=== PATIENT | female | born 1955 | race Caucasian/White ===

== ENCOUNTER 2018-09-23 17:48 | Inpatient (IN) | payer MEDICARE, OTHER ==
--- NOTE | 2018-09-23 18:11 | ED Physician Chart ---
ED Chief Complaint/HPI - Patient Information Date Seen:: 09/23/18 Time Seen:: 18:06 Chief Complaint:: psychosls History of Present Illness:: this is a 63 yo chronically ill fpc who was sent here for evaluation and treatment because she became agitated at the fpc. she has a psych history she is demented. Allergies:: Allergies Allergy/AdvReac Type Severity Reaction Status Date / Time Penicillins [PCN] AdvReac Verified 09/23/18 17:50 Sulfa (Sulfonamide AdvReac Verified 09/23/18 17:50 Antibiotics) Vitals:: Vital Signs - 8 hr 09/23/18 18:00 Temp 97.8 F HR 74 RR 16 BP 132/75 O2 Sat % 97 Historian:: Medical Records Review:: Nurse's Note Reviewed, Old Chart Reviewed ED Review of Systems - Review of Systems General/Constitutional: No fever, No chills, No weight loss, No weakness, No diaphoresis, No edema, No loss of appetite, Other (this patient is unable to give a review of systems.) Skin: No skin lesions, No rash, No bruising Head: No headache, No light-headedness Eyes: No loss of vision, No pain, No diplopia ENT: No earache, No nasal drainage, No sore throat, No tinnitus Neck: No neck pain, No swelling, No thyromegaly, No stiffness, No mass noted Cardio Vascular: No chest pain, No palpitations, No PND, No orthopnea, No edema Pulmonary: No SOB, No cough, No sputum, No wheezing GI: No nausea, No vomiting, No diarrhea, No pain, No melena, No hematochezia, No constipation, No hematemesis G/U: No dysuria, No frequency, No hematuria Musculoskeletal: No bone or joint pain, No back pain, No muscle pain Endocrine: No polyuria, No polydipsia Psychiatric: No prior psych history, No depression, No anxiety, No suicidal ideation Hematopoietic: No bruising, No lymphadenopathy Allergic/Immuno: No urticaria, No angioedema Neurological: No syncope, No focal symptoms, No weakness, No paresthesia, No headache, No seizure, No dizziness, No confusion, No vertigo ED Past Medical History - Past Medical History Obtainable: Yes Past Medical History: HTN, Asthma/COPD, Dyslipidemia, Thyroid disorder, Arthritis, Dementia Family History: None Social History: Non Smoker, No Alcohol, Care Facility ( ) Surgical History: other (unknown) Psychiatricy History: Schizophrenia, Bipolar, Dementia Medication: Reviewed Family Medical History - Family Member Father History Unknown: Yes Ethnicity: Unknown Living Status: Unknown ED Physical Exam - Physical Examination General/Constitutional: Awake, Well-developed, well-nourished, Alert, No distress, GCS 15, Non-toxic appearing, Ambulatory Head: Atraumatic Eyes: Lids, conjuctiva normal, PERRL, EOMI Skin: Nl inspection, No rash, No skin lesions, No ecchymosis, Well hydrated, No lymphadenopathy ENMT: External ears, nose nl, Nasal exam nl, Lips, teeth, gums nl Neck: Nontender, Full ROM w/o pain, No JVD, No nuchal rigidity, No bruit, No mass, No stridor Respiratory: Nl effort/Exclusion, Clear to Auscultation, No Wheeze/Rhonchi/Rales Cardio Vascular: RRR, No murmur, gallop, rubs, NL S1 S2 GI: No tenderness/rebounding/guarding, No organomegaly, No hernia, Normal BS's, Nondistended, No mass/bruits, No McBurney tenderness : No CVA tenderness Extremities: No tenderness or effusion, Full ROM, normal strength in all extremities, No edema, Normal digits & nails Neuro/Psych: Alert/oriented (disoriented times four), DTR's symmetric, Normal sensory exam, Normal motor strength, Judgement/insight normal (demented), Mood normal, Normal gait, No focal deficits Misc: Normal back, No paraspinal tenderness ED Labs/Radiology/EKG Results - EKG Interpretations EKG Time:: 17:59 Rate & Rhythm: rate=91, sinus [place]: right axis ED Assessment - Assessment General Assessment: psychosis ED Septic Shock - . Is Septic Shock (SBP<90, OR Lactate>4 mmol\L) present?: No - <6hrs of presentation: Vital Signs: Vital Signs - 8 hr 09/23/18 18:00 Temp 97.8 F HR 74 RR 16 BP 132/75 O2 Sat % 97 ED Reassessment (Disposition) - Reassessment Reassessment Condition:: Unchanged - Diagnosis Diagnosis:: psychosis - Patient Disposition Discharge/Transfer:: Acute Care w/in this hosp Admitting Medical Physician:: Estephania Garcia Admitting Psych Physician:: Sandy Trujillo Condition at Disposition:: Unchanged
[2018-09-23 18:45] LABS: EOSINOPHILE ABSOLUTE 0.2 Th/cmm (0.1-0.4); HEMATOCRIT 42.1 % (41.0-60); HEMOGLOBIN 14.1 gm/dL (12-16); LYMPHOCYTE ABSOLUTE 9.1 Th/cmm (1.5-3.0); MEAN CELL VOLUME 88.2 fl (81-100); MEAN CORPUSCULAR HEMOGLOBIN 29.5 pg (27.0-31.0); MEAN CORPUSCULAR HGB CONC 33.5 pg (28.0-36.0); MONOCYTE ABSOLUTE 0.6 Th/cmm (0.3-1.0); NEUTROPHILE ABSOLUTE 4.6 Th/cmm (1.8-8.0); PLATELET COUNT 186 Th/cmm (150-400); RED BLOOD COUNT 4.77 Mil/cmm (3.80-5.20); RED CELL DISTRIBUTION WIDTH 14.2 % (11.5-20.0); WHITE BLOOD COUNT 14.5 Th/cmm (4.8-10.8)
[2018-09-23 18:53] LABS: ALB/GLOB RATIO 1.9 (1.0-1.8); ALBUMIN 4.5 gm/dL (3.7-5.3); ALKALINE PHOSPHATASE 60 U/L (34-104); ANION GAP 11.8 (7.0-16.0); BILIRUBIN,TOTAL 0.4 mg/dL (0.3-1.0); BUN - UREA NITROGEN 13 mg/dL (7-25); CALCIUM SERUM 9.9 mg/dL (8.6-10.3); CARBON DIOXIDE 26.3 mEq/L (21.0-31.0); CHLORIDE 105 mEq/L (98-107); CREATININE - SERUM 0.6 mg/dL (0.6-1.2); GFR AFRICAN-AMERICAN > 60.0 ml/min (>90); GFR NON AFRICAN-AMERICAN > 60.0 ml/min; GLUCOSE 91 mg/dL (70-105); POTASSIUM SERUM 4.1 mEq/L (3.5-5.1); SGOT 12 U/L (13-39); SGPT/ALT 10 U/L (7-52); SODIUM SERUM 139 mEq/L (136-145); TOTAL PROTEIN,SERUM 6.9 gm/dL (6.0-8.3)
[2018-09-23 18:54] LABS: CHOLESTEROL 129 mg/dL (<200); HDL -HIGH DENSITY LIPOPROTEIN 32 mg/dL (23-92); TRIGLYCERIDES 141 mg/dL (<150)
[2018-09-23 19:10] LABS: BAND NEUTROPHILE 0 % (0-10); BASOPHIL 0 % (0-3); EOSINOPHIL 3 % (0-5); LYMPHOCYTE 69 % (20-50); MONOCYTE 3 % (2-10); NEUTROPHILS 25 % (40-80); PLATELET ESTIMATE ADEQUATE (NORMAL)
[2018-09-23 19:22] LABS: URINE SOURCE CLEAN C
[2018-09-23 19:39] LABS: URINE BILIRUBIN NEGATIVE (NEGATIVE); URINE BLOOD NEGATIVE (NEGATIVE); URINE GLUCOSE (UA) NEGATIVE (NEGATIVE); URINE KETONE NEGATIVE (NEGATIVE); URINE LEUKOCYTE ESTERASE NEGATIVE (NEGATIVE); URINE NITRATE NEGATIVE (NEGATIVE); URINE PROTEIN NEGATIVE (NEGATIVE); URINE UROBILINOGEN 0.2 E.U./dL (0.2 - 1.0)
[2018-09-23 19:44] LABS: URINE CLARITY CLEAR (CLEAR); URINE COLOR YELLOW; URINE MICROSCOPIC INDICATED? YES
[2018-09-23 19:57] LABS: INR 0.97 (0.5-1.4)
[2018-09-23 20:04] LABS: URINE BACTERIA NONE SEEN /hpf (NONE SEEN); URINE EPITHELIAL CELLS RARE /lpf (FEW); URINE RBC NONE SEEN /hpf (0-5); URINE WBC NONE SEEN /hpf (0-5)
[2018-09-23 20:30] VITALS: BP 135/68
[2018-09-23] MEDS ORDERED: Magnesium Hydroxide (MOM) 30 mL UDC PO PRN (20:35)
[2018-09-23] MEDS ORDERED: Albuterol Nebulizer 2.5mg/3mL HHN PRN (20:35)
[2018-09-23] MEDS ORDERED: Acetaminophen 500 MG TAB PO PRN (20:46)
[2018-09-23] MEDS ORDERED: Maalox 30 mL Cup PO PRN (20:47)
[2018-09-23] MEDS: Atorvastatin Calcium 10 MG TAB PO SCH (21:00)
[2018-09-24] MEDS: Levothyroxine 0.05 Mg Tab PO SCH (06:51)
[2018-09-24] MEDS: Fish Oil 1,000 MG SGL PO SCH (08:54)
[2018-09-24] MEDS: Multivitamin Tab PO SCH (08:54)
[2018-09-24] MEDS: Lidocaine 5% Patch TD SCH (08:58)
--- NOTE | 2018-09-24 09:07 | Diagnostic Imaging Report ---
Portable chest x-ray HISTORY: Shortness of breath The heart size is normal. There is elevation of the right hemidiaphragm. No acute focal pulmonary processes. No hilar or mediastinal abnormalities. Severe arthritic changes about the shoulders (left greater than right). IMPRESSION: 1. Elevation of the right hemidiaphragm 2. No acute abnormalities
--- NOTE | 2018-09-24 15:30 | History and Physical ---
History of Present Illness - HPI Chief Complaint: 63 y/o female patient is chronically ill and was brought in to ER for evaluation due to agitation. HPI: 63 y/o female patient is chronically ill and was admitted to [facility] for evaluation due to agitation. Patient has history of Htn, Dslipidemia, Thyroid disorder, Arthritis, Asthma, Schizophrenia, Bipolar disorder and Dementia. Patient had an ER assessment and a complete workup was done. Patient was diagnosed with Psychosis. Patient will have a Psych consult and I will also follow patient. Patient will be treated, monitored and will continue current treatment plan as ordered. Vital Signs: Last Vital Signs Temp 97.5 F 09/24/18 05:46 Pulse 98 09/24/18 08:54 Resp 20 09/24/18 07:31 BP 135/65 09/24/18 08:54 Pulse Ox 101 09/24/18 07:31 Past Medical History Cardiovascular: Report: HTN Pulmonary: Report: Asthma [employer]: Report: Dementia GI: Report: No Pertinent Hx Psych: Report: Schizophrenia Musculoskeletal: Report: Other (Arthritis.) Rheumatologic: Report: No pertinent Hx Infectious Disease: Report: No Pertinent Hx Renal/: Report: No Pertinent Hx Endocrine: Report: Other (Thyroid disorder.) - Past Surgical History Past Surgical History: No pertinent Hx Family Medical History - Family Member Father History Unknown: Yes Ethnicity: Unknown Living Status: Unknown Social History Smoke: No Alcohol: None Drugs: None Lives: Longterm Domestic Violence: Negative Health Maintenance Health Maintenance: Other (see chart.) - Medications Home Medications: Home Medication Medication Instructions Recorded Type Acetaminophen 650 mg PO Q4HR PRN 02/20/14 History Albuterol Nebulizer 2.5mg/3mL 3 mg IH Q6HR PRN 02/20/14 History [Albuterol Neb UD*] Aluminum Hydroxide/Magnesium 30 ml PO Q6HR PRN 02/20/14 History [Mylanta Ultimate Strength 500 mg/5 ml-500 mg/] Amlodipine Besylate 10 mg PO DAILY 02/20/14 History Ascorbic Acid [Vitamin C] 500 mg PO DAILY 02/20/14 History Atorvastatin Calcium [Lipitor] 20 mg PO HS 02/20/14 History Docusate Sodium [Colace] 100 mg PO Q12HR 02/20/14 History Folic Acid/Vit A/Vit B1/Vit 1 tab PO DAILY 02/20/14 History [Multivitamin] Levothyroxine Sodium [Synthroid] 0.05 mg PO AC 02/20/14 History Lidocaine 5% Patch [Lidoderm 5% 1 patch TP DAILY 02/20/14 History Patch] [place]-3 Fatty Acids/Fish Oil 1,000 mg PO DAILY 02/20/14 History [[place] 3 1,000 mg Softgel] Magnesium Hydroxide [Milk of 30 ml PO DAILY PRN 04/11/14 History Magnesia] Divalproex DR [Depakote DR] 250 mg PO BID 09/23/18 History Lorazepam [Ativan] 0.5 mg PO Q12H PRN 09/23/18 History OLANZapine [ZyPREXA] 5 mg PO BID 09/23/18 History Trazodone HCl 50 mg PO HS 09/23/18 History Other Medications: Please see medication reconciliation sheet. - Allergies Allergies/Adverse Reactions: Allergies Allergy/AdvReac Type Severity Reaction Status Date / Time Penicillins [PCN] AdvReac Verified 09/23/18 17:50 Sulfa (Sulfonamide AdvReac Verified 09/23/18 17:50 Antibiotics) Review of Systems - Review of Systems Review of Systems: Patient is very agitated. Constitutional: Report: No Significant Eyes: Report: No Significant ENT: Report: No Significant Respiratory: Report: No Significant Gastrointestinal: Report: No Significant Genitourinary: Report: No Significant Musculoskeletal: Report: No Significant Neurological: Report: Confusion Physical Exam - Physical Exam HEENT: Report: Ears Nose Throat within normal limits Neck: Report: Within normal limits Cardiovascular Systems: Report: +s1/s2 noted Respiratory: Report: Breath Sounds are within normal limits Abdomen: Report: Non-tender to palpation Back: Report: Inspection of back is within normal limits. Extremities: Report: Non-tender to palpation. Skin: Report: Color of skin is within normal limits Neuro/Psych: Report: Other (Agitated.) - Lab Results All Lab Results last 24 hours: Laboratory Results - last 24 hr 09/23/18 09/23/18 09/23/18 18:30 18:30 18:30 WBC 14.5 H RBC 4.77 Hgb 14.1 Hct 42.1 MCV 88.2 MCH 29.5 MCHC Differential 33.5 RDW 14.2 Plt Count 186 MPV 9.1 Add Manual Diff YES Band Neutrophils % 0 Neutrophils (Manual) 25 L Lymphocytes 69 H Monocytes 3 Eosinophils 3 Basophils 0 Platelet Estimate ADEQUATE PT 10.1 INR 0.97 PTT (Actin FS) 23.4 L Sodium Potassium Chloride Carbon Dioxide Anion Gap BUN Creatinine Est GFR ( Amer) Est GFR (Non-Af Amer) BUN/Creatinine Ratio Glucose Calcium Total Bilirubin AST ALT Alkaline Phosphatase Troponin I Total Protein Albumin Globulin Albumin/Globulin Ratio Triglycerides 141 Cholesterol 129 LDL Cholesterol Direct 83 HDL Cholesterol 32 TSH Urine Source Urine Color Urine Clarity Urine pH Ur Specific [place] Urine Protein Urine Glucose (UA) Urine Ketones Urine Blood Urine Nitrate Urine Bilirubin Urine Urobilinogen Ur Leukocyte Esterase Urine RBC Urine WBC Ur Epithelial Cells Urine Bacteria 09/23/18 09/23/18 09/23/18 18:30 18:30 18:30 WBC RBC Hgb Hct MCV MCH MCHC Differential RDW Plt Count MPV Add Manual Diff Band Neutrophils % Neutrophils (Manual) Lymphocytes Monocytes Eosinophils Basophils Platelet Estimate PT INR PTT (Actin FS) Sodium 139 Potassium 4.1 Chloride 105 Carbon Dioxide 26.3 Anion Gap 11.8 BUN 13 Creatinine 0.6 Est GFR ( Amer) > 60.0 Est GFR (Non-Af Amer) > 60.0 BUN/Creatinine Ratio 21.7 Glucose 91 Calcium 9.9 Total Bilirubin 0.4 AST 12 L ALT 10 Alkaline Phosphatase 60 Troponin I < 0.01 L Total Protein 6.9 Albumin 4.5 Globulin 2.4 Albumin/Globulin Ratio 1.9 H Triglycerides Cholesterol LDL Cholesterol Direct HDL Cholesterol TSH 1.09 Urine Source Urine Color Urine Clarity Urine pH Ur Specific [place] Urine Protein Urine Glucose (UA) Urine Ketones Urine Blood Urine Nitrate Urine Bilirubin Urine Urobilinogen Ur Leukocyte Esterase Urine RBC Urine WBC Ur Epithelial Cells Urine Bacteria 09/23/18 19:20 WBC RBC Hgb Hct MCV MCH MCHC Differential RDW Plt Count MPV Add Manual Diff Band Neutrophils % Neutrophils (Manual) Lymphocytes Monocytes Eosinophils Basophils Platelet Estimate PT INR PTT (Actin FS) Sodium Potassium Chloride Carbon Dioxide Anion Gap BUN Creatinine Est GFR ( Amer) Est GFR (Non-Af Amer) BUN/Creatinine Ratio Glucose Calcium Total Bilirubin AST ALT Alkaline Phosphatase Troponin I Total Protein Albumin Globulin Albumin/Globulin Ratio Triglycerides Cholesterol LDL Cholesterol Direct HDL Cholesterol TSH Urine Source CLEAN C Urine Color YELLOW Urine Clarity CLEAR Urine pH 7.0 Ur Specific [place] <= 1.005 Urine Protein NEGATIVE Urine Glucose (UA) NEGATIVE Urine Ketones NEGATIVE Urine Blood NEGATIVE Urine Nitrate NEGATIVE Urine Bilirubin NEGATIVE Urine Urobilinogen 0.2 Ur Leukocyte Esterase NEGATIVE Urine RBC NONE SEEN Urine WBC NONE SEEN Ur Epithelial Cells RARE Urine Bacteria NONE SEEN - Assessment Assessment: Psychosis. Htn. Hx of Dslipidemia. Thyroid disorder. Arthritis. Asthma. Schizophrenia. Bipolar disorder. Dementia. - Plan Plan: Continuation of care. Monitor Labs. Continue present meds as directed. Monitor vitals, Continue BP meds as directed. Monitor Diet/Nutritional support. Psych management per Psych. Pain Management. Physical therapy. Occupational therapy. Fall precaution, frequent nursing rounds, and as needed restraints to prevent fall. Safety precaution. Supportive care. Continue collaborating with consulting specialists, case management and nursing team. Will Monitor patient and continue current treatment plan as ordered.
[2018-09-24] MEDS: Atorvastatin Calcium 10 MG TAB PO SCH (21:04)
[2018-09-25] MEDS: Levothyroxine 0.05 Mg Tab PO SCH (06:31)
[2018-09-25] MEDS: Fish Oil 1,000 MG SGL PO SCH (08:27)
[2018-09-25] MEDS: Lidocaine 5% Patch TD SCH (08:29)
[2018-09-25] MEDS: Multivitamin Tab PO SCH (08:31)
[2018-09-25 09:10] LABS: A1C 5.5 % (4.8-5.6)
--- NOTE | 2018-09-25 11:34 | Internal Medicine Prog Note ---
Internal Medicine Subjective - Subjective Service Date: 09/25/18 Patient seen and examined:: with staff Patient is:: awake, verbal, agitated, confused Patient Complaints of:: other (Hx of Dementia.) Per staff patient has:: no adverse event, no episodes of fall Internal Medicine Objective - Results Result Diagrams: 09/23/18 18:30 09/23/18 18:30 Recent Labs: Laboratory Last Values WBC 14.5 Th/cmm (4.8-10.8) H 09/23/18 18:30 RBC 4.77 Mil/cmm (3.80-5.20) 09/23/18 18:30 Hgb 14.1 gm/dL (12-16) 09/23/18 18:30 Hct 42.1 % (41.0-60) 09/23/18 18:30 MCV 88.2 fl (81-100) 09/23/18 18:30 MCH 29.5 pg (27.0-31.0) 09/23/18 18:30 MCHC Differential 33.5 pg (28.0-36.0) 09/23/18 18:30 RDW 14.2 % (11.5-20.0) 09/23/18 18:30 Plt Count 186 Th/cmm (150-400) 09/23/18 18:30 MPV 9.1 fl 09/23/18 18:30 Add Manual Diff YES 09/23/18 18:30 Band Neutrophils % 0 % (0-10) 09/23/18 18:30 Neutrophils (Manual) 25 % (40-80) L 09/23/18 18:30 Lymphocytes 69 % (20-50) H 09/23/18 18:30 Monocytes 3 % (2-10) 09/23/18 18:30 Eosinophils 3 % (0-5) 09/23/18 18:30 Basophils 0 % (0-3) 09/23/18 18:30 Platelet Estimate ADEQUATE (NORMAL) 09/23/18 18:30 PT 10.1 SECONDS (9.5-11.5) 09/23/18 18:30 INR 0.97 (0.5-1.4) 09/23/18 18:30 PTT (Actin FS) 23.4 SECONDS (26.0-38.0) L 09/23/18 18:30 Sodium 139 mEq/L (136-145) 09/23/18 18:30 Potassium 4.1 mEq/L (3.5-5.1) 09/23/18 18:30 Chloride 105 mEq/L (98-107) 09/23/18 18:30 Carbon Dioxide 26.3 mEq/L (21.0-31.0) 09/23/18 18:30 Anion Gap 11.8 (7.0-16.0) 09/23/18 18:30 BUN 13 mg/dL (7-25) 09/23/18 18:30 Creatinine 0.6 mg/dL (0.6-1.2) 09/23/18 18:30 Est GFR ( Amer) > 60.0 ml/min (>90) 09/23/18 18:30 Est GFR (Non-Af Amer) > 60.0 ml/min 09/23/18 18:30 BUN/Creatinine Ratio 21.7 09/23/18 18:30 Glucose 91 mg/dL (70-105) 09/23/18 18:30 Calcium 9.9 mg/dL (8.6-10.3) 09/23/18 18:30 Total Bilirubin 0.4 mg/dL (0.3-1.0) 09/23/18 18:30 AST 12 U/L (13-39) L 09/23/18 18:30 ALT 10 U/L (7-52) 09/23/18 18:30 Alkaline Phosphatase 60 U/L (34-104) 09/23/18 18:30 Troponin I < 0.01 ng/mL (0.01-0.05) L 09/23/18 18:30 Total Protein 6.9 gm/dL (6.0-8.3) 09/23/18 18:30 Albumin 4.5 gm/dL (3.7-5.3) 09/23/18 18:30 Globulin 2.4 gm/dL 09/23/18 18:30 Albumin/Globulin Ratio 1.9 (1.0-1.8) H 09/23/18 18:30 Triglycerides 141 mg/dL (<150) 09/23/18 18:30 Cholesterol 129 mg/dL (<200) 09/23/18 18:30 LDL Cholesterol Direct 83 mg/dL (75-193) 09/23/18 18:30 HDL Cholesterol 32 mg/dL (23-92) 09/23/18 18:30 TSH 1.09 uIU/ml (0.34-5.60) 09/23/18 18:30 Urine Source CLEAN C 09/23/18 19:20 Urine Color YELLOW 09/23/18 19:20 Urine Clarity CLEAR (CLEAR) 09/23/18 19:20 Urine pH 7.0 (4.6 - 8.0) 09/23/18 19:20 Ur Specific [place] <= 1.005 (1.005-1.030) 09/23/18 19:20 Urine Protein NEGATIVE mg/dL (NEGATIVE) 09/23/18 19:20 Urine Glucose (UA) NEGATIVE mg/dL (NEGATIVE) 09/23/18 19:20 Urine Ketones NEGATIVE mg/dL (NEGATIVE) 09/23/18 19:20 Urine Blood NEGATIVE (NEGATIVE) 09/23/18 19:20 Urine Nitrate NEGATIVE (NEGATIVE) 09/23/18 19:20 Urine Bilirubin NEGATIVE (NEGATIVE) 09/23/18 19:20 Urine Urobilinogen 0.2 E.U./dL (0.2 - 1.0) 09/23/18 19:20 Ur Leukocyte Esterase NEGATIVE (NEGATIVE) 09/23/18 19:20 Urine RBC NONE SEEN /hpf (0-5) 09/23/18 19:20 Urine WBC NONE SEEN /hpf (0-5) 09/23/18 19:20 Ur Epithelial Cells RARE /lpf (FEW) 09/23/18 19:20 Urine Bacteria NONE SEEN /hpf (NONE SEEN) 09/23/18 19:20 - Physical Exam Vitals and I&O: Vital Signs Temp 97.9 F 09/25/18 05:29 Pulse 95 09/25/18 08:27 Resp 18 09/25/18 07:05 BP 157/89 09/25/18 08:27 Pulse Ox 96 09/25/18 07:05 Intake & Output 09/24/18 09/25/18 09/25/18 18:59 06:59 18:59 Intake Total 900 120 Balance 900 120 Intake: Oral 900 120 Other: # Voids 3 3 # Bowel Movements 1 0 Active Medications: Current Medications Acetaminophen (Tylenol) 650 mg PO Q4HR PRN PRN Reason: Mild Pain / Temp above 100 Stop: 11/23/18 03:37 Al Hydrox/Mg Hydrox/Simethicone (Maalox) 30 ml PO Q6HR PRN PRN Reason: Indigestion Stop: 11/22/18 20:46 Albuterol Sulfate (Albuterol 2.5mg/3ml Neb Ud) 3 mg HHN Q6HR PRN PRN Reason: COPD Exacerbation Stop: 11/22/18 20:34 Amlodipine Besylate (Norvasc) 5 mg PO DAILY MAISHA Stop: 11/23/18 08:59 Last Admin: 09/25/18 08:27 Dose: 5 mg Ascorbic Acid (Vitamin C) 500 mg PO DAILY MAISHA Stop: 11/23/18 08:59 Last Admin: 09/25/18 08:28 Dose: 500 mg Atorvastatin Calcium (Lipitor) 20 mg PO HS MAISHA; Protocol Stop: 11/22/18 20:59 Last Admin: 09/24/18 21:04 Dose: 20 mg Divalproex Sodium (Depakote Dr) 250 mg PO BID MAISHA; Protocol Stop: 11/23/18 08:59 Last Admin: 09/25/18 08:26 Dose: 250 mg Docusate Sodium (Colace) 100 mg PO Q12HR MAISHA Stop: 11/22/18 20:59 Last Admin: 09/25/18 08:27 Dose: 100 mg Fish Oil ([place] 3) 1,000 mg PO DAILY MAISHA Stop: 11/23/18 08:59 Last Admin: 09/25/18 08:27 Dose: 1,000 mg Levothyroxine Sodium (Synthroid) 0.05 mg PO QDAC MAISHA Stop: 11/23/18 07:29 Last Admin: 09/25/18 06:31 Dose: 0.05 mg Lidocaine (Lidoderm 5% Patch) 1 patch TD DAILY MAISHA Stop: 11/23/18 08:59 Last Admin: 09/25/18 08:29 Dose: 1 patch Lorazepam (Ativan) 0.5 mg PO Q4HR PRN; Protocol PRN Reason: Anxiety Stop: 10/23/18 20:30 Last Admin: 09/25/18 08:28 Dose: 0.5 mg Magnesium Hydroxide (Milk Of Magnesia) 30 ml PO DAILY PRN PRN Reason: Constipation Stop: 11/22/18 20:34 Multivitamins/Vitamin C (Theragran) 1 tab PO DAILY MAISHA Stop: 11/23/18 08:59 Last Admin: 09/25/18 08:31 Dose: 1 tab Olanzapine (Zyprexa) 5 mg PO BID MAISHA; Protocol Stop: 11/23/18 08:59 Last Admin: 09/25/18 08:28 Dose: 5 mg Trazodone HCl (Desyrel) 50 mg PO HS MAISHA; Protocol Stop: 11/22/18 20:59 Last Admin: 09/24/18 21:05 Dose: 50 mg Zolpidem Tartrate (Ambien) 5 mg PO HS PRN PRN Reason: Insomnia Stop: 11/22/18 20:30 Physical Exam: 63 y/o female patient has been agitated. General: weak, demented HEENT: NC/AT Neck: Supple Lungs: CTAB Cardiovascular: RRR Abdomen: soft, non-tender Extremities: clear Neurological: no change - Procedures Procedures: Procedures Procedure Code Date COLONOSCOPY AND BIOPSY 60439 07/20/12 EGD BIOPSY SINGLE/MULTIPLE 74215 07/20/12 ENDOSCOPIC BIOPSY OF RECTUM 48.24 07/20/12 ESOPHAGOGASTRODUODENOSCOPY [EGD] W/CLOSED BIOPSY 45.16 07/20/12 OTHER GROUP THERAPY 94.44 09/16/11 Internal Medicine Assmt/Plan - Assessment Assessment: Psychosis. Htn. Hx of Dslipidemia. Thyroid disorder. Arthritis. Asthma. Schizophrenia. Bipolar disorder. Dementia. - Plan Plan: Continuation of care. Monitor Labs. Continue present meds as directed. Monitor vitals, Continue BP meds as directed. Monitor Diet/Nutritional support. Psych management per Psych. Pain Management. Physical therapy. Occupational therapy. Fall precaution, frequent nursing rounds, and as needed restraints to prevent fall. Safety precaution. Supportive care. Continue collaborating with consulting specialists, case management and nursing team. Will Monitor patient and continue present care management. Nutritional Asmnt/Malnutr-PDOC - Dietary Evaluation Malnutrition Findings (Please click <Entered> for more info): see orders.
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
[2018-09-25] MEDS: Atorvastatin Calcium 10 MG TAB PO SCH (21:33)
[2018-09-26] MEDS: Levothyroxine 0.05 Mg Tab PO SCH (06:38)
[2018-09-26] MEDS: Fish Oil 1,000 MG SGL PO SCH (08:42)
[2018-09-26] MEDS: Lidocaine 5% Patch TD SCH (08:43)
[2018-09-26] MEDS: Multivitamin Tab PO SCH (08:43)
--- NOTE | 2018-09-26 11:48 | Internal Medicine Prog Note ---
Internal Medicine Subjective - Subjective Service Date: 09/26/18 Patient seen and examined:: with staff Patient is:: awake, verbal, agitated, confused Patient Complaints of:: other (Hx of Dementia.) Per staff patient has:: no adverse event, no episodes of fall Internal Medicine Objective - Results Result Diagrams: 09/23/18 18:30 09/23/18 18:30 Recent Labs: Laboratory Last Values WBC 14.5 Th/cmm (4.8-10.8) H 09/23/18 18:30 RBC 4.77 Mil/cmm (3.80-5.20) 09/23/18 18:30 Hgb 14.1 gm/dL (12-16) 09/23/18 18:30 Hct 42.1 % (41.0-60) 09/23/18 18:30 MCV 88.2 fl (81-100) 09/23/18 18:30 MCH 29.5 pg (27.0-31.0) 09/23/18 18:30 MCHC Differential 33.5 pg (28.0-36.0) 09/23/18 18:30 RDW 14.2 % (11.5-20.0) 09/23/18 18:30 Plt Count 186 Th/cmm (150-400) 09/23/18 18:30 MPV 9.1 fl 09/23/18 18:30 Add Manual Diff YES 09/23/18 18:30 Band Neutrophils % 0 % (0-10) 09/23/18 18:30 Neutrophils (Manual) 25 % (40-80) L 09/23/18 18:30 Lymphocytes 69 % (20-50) H 09/23/18 18:30 Monocytes 3 % (2-10) 09/23/18 18:30 Eosinophils 3 % (0-5) 09/23/18 18:30 Basophils 0 % (0-3) 09/23/18 18:30 Platelet Estimate ADEQUATE (NORMAL) 09/23/18 18:30 PT 10.1 SECONDS (9.5-11.5) 09/23/18 18:30 INR 0.97 (0.5-1.4) 09/23/18 18:30 PTT (Actin FS) 23.4 SECONDS (26.0-38.0) L 09/23/18 18:30 Sodium 139 mEq/L (136-145) 09/23/18 18:30 Potassium 4.1 mEq/L (3.5-5.1) 09/23/18 18:30 Chloride 105 mEq/L (98-107) 09/23/18 18:30 Carbon Dioxide 26.3 mEq/L (21.0-31.0) 09/23/18 18:30 Anion Gap 11.8 (7.0-16.0) 09/23/18 18:30 BUN 13 mg/dL (7-25) 09/23/18 18:30 Creatinine 0.6 mg/dL (0.6-1.2) 09/23/18 18:30 Est GFR ( Amer) > 60.0 ml/min (>90) 09/23/18 18:30 Est GFR (Non-Af Amer) > 60.0 ml/min 09/23/18 18:30 BUN/Creatinine Ratio 21.7 09/23/18 18:30 Glucose 91 mg/dL (70-105) 09/23/18 18:30 Calcium 9.9 mg/dL (8.6-10.3) 09/23/18 18:30 Total Bilirubin 0.4 mg/dL (0.3-1.0) 09/23/18 18:30 AST 12 U/L (13-39) L 09/23/18 18:30 ALT 10 U/L (7-52) 09/23/18 18:30 Alkaline Phosphatase 60 U/L (34-104) 09/23/18 18:30 Troponin I < 0.01 ng/mL (0.01-0.05) L 09/23/18 18:30 Total Protein 6.9 gm/dL (6.0-8.3) 09/23/18 18:30 Albumin 4.5 gm/dL (3.7-5.3) 09/23/18 18:30 Globulin 2.4 gm/dL 09/23/18 18:30 Albumin/Globulin Ratio 1.9 (1.0-1.8) H 09/23/18 18:30 Triglycerides 141 mg/dL (<150) 09/23/18 18:30 Cholesterol 129 mg/dL (<200) 09/23/18 18:30 LDL Cholesterol Direct 83 mg/dL (75-193) 09/23/18 18:30 HDL Cholesterol 32 mg/dL (23-92) 09/23/18 18:30 TSH 1.09 uIU/ml (0.34-5.60) 09/23/18 18:30 Urine Source CLEAN C 09/23/18 19:20 Urine Color YELLOW 09/23/18 19:20 Urine Clarity CLEAR (CLEAR) 09/23/18 19:20 Urine pH 7.0 (4.6 - 8.0) 09/23/18 19:20 Ur Specific [place] <= 1.005 (1.005-1.030) 09/23/18 19:20 Urine Protein NEGATIVE mg/dL (NEGATIVE) 09/23/18 19:20 Urine Glucose (UA) NEGATIVE mg/dL (NEGATIVE) 09/23/18 19:20 Urine Ketones NEGATIVE mg/dL (NEGATIVE) 09/23/18 19:20 Urine Blood NEGATIVE (NEGATIVE) 09/23/18 19:20 Urine Nitrate NEGATIVE (NEGATIVE) 09/23/18 19:20 Urine Bilirubin NEGATIVE (NEGATIVE) 09/23/18 19:20 Urine Urobilinogen 0.2 E.U./dL (0.2 - 1.0) 09/23/18 19:20 Ur Leukocyte Esterase NEGATIVE (NEGATIVE) 09/23/18 19:20 Urine RBC NONE SEEN /hpf (0-5) 09/23/18 19:20 Urine WBC NONE SEEN /hpf (0-5) 09/23/18 19:20 Ur Epithelial Cells RARE /lpf (FEW) 09/23/18 19:20 Urine Bacteria NONE SEEN /hpf (NONE SEEN) 09/23/18 19:20 - Physical Exam Vitals and I&O: Vital Signs Temp 97.2 F 09/26/18 05:55 Pulse 70 09/26/18 08:42 Resp 18 09/26/18 07:21 BP 127/75 09/26/18 08:42 Pulse Ox 95 09/26/18 07:21 Intake & Output 09/25/18 09/26/18 09/26/18 18:59 06:59 18:59 Intake Total 950 240 Balance 950 240 Intake: Oral 950 240 Other: # Voids 4 2 # Bowel Movements 1 0 Active Medications: Current Medications Acetaminophen (Tylenol) 650 mg PO Q4HR PRN PRN Reason: Mild Pain / Temp above 100 Stop: 11/23/18 03:37 Al Hydrox/Mg Hydrox/Simethicone (Maalox) 30 ml PO Q6HR PRN PRN Reason: Indigestion Stop: 11/22/18 20:46 Albuterol Sulfate (Albuterol 2.5mg/3ml Neb Ud) 3 mg HHN Q6HR PRN PRN Reason: COPD Exacerbation Stop: 11/22/18 20:34 Amlodipine Besylate (Norvasc) 5 mg PO DAILY [facility] Stop: 11/23/18 08:59 Last Admin: 09/26/18 08:42 Dose: 5 mg Ascorbic Acid (Vitamin C) 500 mg PO DAILY [facility] Stop: 11/23/18 08:59 Last Admin: 09/26/18 08:43 Dose: 500 mg Atorvastatin Calcium (Lipitor) 20 mg PO HS [facility]; Protocol Stop: 11/22/18 20:59 Last Admin: 09/25/18 21:33 Dose: 20 mg Divalproex Sodium (Depakote Dr) 500 mg PO BID [facility]; Protocol Stop: 11/25/18 08:59 Last Admin: 09/26/18 08:42 Dose: 500 mg Docusate Sodium (Colace) 100 mg PO Q12HR [facility] Stop: 11/22/18 20:59 Last Admin: 09/26/18 08:41 Dose: 100 mg Fish Oil ([place] 3) 1,000 mg PO DAILY [facility] Stop: 11/23/18 08:59 Last Admin: 09/26/18 08:42 Dose: 1,000 mg Levothyroxine Sodium (Synthroid) 0.05 mg PO QDAC [facility] Stop: 11/23/18 07:29 Last Admin: 09/26/18 06:38 Dose: 0.05 mg Lidocaine (Lidoderm 5% Patch) 1 patch TD DAILY [facility] Stop: 11/23/18 08:59 Last Admin: 09/26/18 08:43 Dose: Not Given Lorazepam (Ativan) 0.5 mg PO Q4HR PRN; Protocol PRN Reason: Anxiety Stop: 10/23/18 20:30 Last Admin: 09/26/18 06:38 Dose: 0.5 mg Magnesium Hydroxide (Milk Of Magnesia) 30 ml PO DAILY PRN PRN Reason: Constipation Stop: 11/22/18 20:34 Multivitamins/Vitamin C (Theragran) 1 tab PO DAILY [facility] Stop: 11/23/18 08:59 Last Admin: 09/26/18 08:43 Dose: 1 tab Olanzapine (Zyprexa) 5 mg PO BID [facility]; Protocol Stop: 11/23/18 08:59 Last Admin: 09/26/18 08:42 Dose: 5 mg Trazodone HCl (Desyrel) 100 mg PO HS [facility]; Protocol Stop: 11/25/18 20:59 Zolpidem Tartrate (Ambien) 5 mg PO HS PRN PRN Reason: Insomnia Stop: 11/22/18 20:30 Last Admin: 09/25/18 21:33 Dose: 5 mg Physical Exam: 63 y/o female patient has been agitated. General: weak, demented HEENT: NC/AT Neck: Supple Lungs: CTAB Cardiovascular: RRR Abdomen: soft, non-tender Extremities: clear Neurological: no change - Procedures Procedures: Procedures Procedure Code Date COLONOSCOPY AND BIOPSY 77165 07/20/12 EGD BIOPSY SINGLE/MULTIPLE 35447 07/20/12 ENDOSCOPIC BIOPSY OF RECTUM 48.24 07/20/12 ESOPHAGOGASTRODUODENOSCOPY [EGD] W/CLOSED BIOPSY 45.16 07/20/12 OTHER GROUP THERAPY 94.44 09/16/11 Internal Medicine Assmt/Plan - Assessment Assessment: Psychosis. Htn. Hx of Dslipidemia. Thyroid disorder. Arthritis. Asthma. Schizophrenia. Bipolar disorder. Dementia. - Plan Plan: Continuation of care. Monitor Labs. Continue present meds as directed. Monitor vitals, Continue BP meds as directed. Monitor Diet/Nutritional support. Psych management per Psych. Pain Management. Physical therapy. Occupational therapy. Fall precaution, frequent nursing rounds, and as needed restraints to prevent fall. Safety precaution. Supportive care. Continue collaborating with consulting specialists, case management and nursing team. Will Monitor patient and continue present care management. Nutritional Asmnt/Malnutr-PDOC - Dietary Evaluation Malnutrition Findings (Please click <Entered> for more info): see orders.
[2018-09-26] MEDS: Atorvastatin Calcium 10 MG TAB PO SCH (21:59)
--- NOTE | 2018-09-27 01:25 | Progress Notes ---
DATE: 09/26/2018 SUBJECTIVE: Chart was reviewed and the patient interviewed. Also discussed the patient's condition with the staff and reviewed records and labs. The patient is confused and the patient is asking for "my ." The patient also is restless and she is still having severe mood swings. She also is still demanding and in irritable and angry mood. The patient also is still yelling and screaming for no apparent reason and she needs prompt instructions, has difficulty to follow instructions. Otherwise, the patient started to take her medications, which is Depakote, trazodone, and Zyprexa with no side effects. ASSESSMENT: The patient is still irritable and in agitated mood. TREATMENT PLAN: We will continue to monitor her behavior and her condition closely. Also, continue adjusting psychotropic medications and work on behavioral modification. Also, we will increase Depakote to 500 mg twice a day and we will increase trazodone to 100 mg every day and continue Zyprexa 5 mg twice a day and continue to follow up. JOB# [id number]
[2018-09-27] MEDS: Levothyroxine 0.05 Mg Tab PO SCH (06:29)
[2018-09-27] MEDS: Fish Oil 1,000 MG SGL PO SCH (08:51)
[2018-09-27] MEDS: Multivitamin Tab PO SCH (08:52)
[2018-09-27] MEDS: Lidocaine 5% Patch TD SCH (08:52)
--- NOTE | 2018-09-27 13:48 | Internal Medicine Prog Note ---
Internal Medicine Subjective - Subjective Service Date: 09/27/18 Patient seen and examined:: with staff Patient is:: awake, verbal, agitated, confused Patient Complaints of:: other (Hx of Dementia.) Per staff patient has:: no adverse event, no episodes of fall Internal Medicine Objective - Results Result Diagrams: 09/23/18 18:30 09/23/18 18:30 Recent Labs: Laboratory Last Values WBC 14.5 Th/cmm (4.8-10.8) H 09/23/18 18:30 RBC 4.77 Mil/cmm (3.80-5.20) 09/23/18 18:30 Hgb 14.1 gm/dL (12-16) 09/23/18 18:30 Hct 42.1 % (41.0-60) 09/23/18 18:30 MCV 88.2 fl (81-100) 09/23/18 18:30 MCH 29.5 pg (27.0-31.0) 09/23/18 18:30 MCHC Differential 33.5 pg (28.0-36.0) 09/23/18 18:30 RDW 14.2 % (11.5-20.0) 09/23/18 18:30 Plt Count 186 Th/cmm (150-400) 09/23/18 18:30 MPV 9.1 fl 09/23/18 18:30 Add Manual Diff YES 09/23/18 18:30 Band Neutrophils % 0 % (0-10) 09/23/18 18:30 Neutrophils (Manual) 25 % (40-80) L 09/23/18 18:30 Lymphocytes 69 % (20-50) H 09/23/18 18:30 Monocytes 3 % (2-10) 09/23/18 18:30 Eosinophils 3 % (0-5) 09/23/18 18:30 Basophils 0 % (0-3) 09/23/18 18:30 Platelet Estimate ADEQUATE (NORMAL) 09/23/18 18:30 PT 10.1 SECONDS (9.5-11.5) 09/23/18 18:30 INR 0.97 (0.5-1.4) 09/23/18 18:30 PTT (Actin FS) 23.4 SECONDS (26.0-38.0) L 09/23/18 18:30 Sodium 139 mEq/L (136-145) 09/23/18 18:30 Potassium 4.1 mEq/L (3.5-5.1) 09/23/18 18:30 Chloride 105 mEq/L (98-107) 09/23/18 18:30 Carbon Dioxide 26.3 mEq/L (21.0-31.0) 09/23/18 18:30 Anion Gap 11.8 (7.0-16.0) 09/23/18 18:30 BUN 13 mg/dL (7-25) 09/23/18 18:30 Creatinine 0.6 mg/dL (0.6-1.2) 09/23/18 18:30 Est GFR ( Amer) > 60.0 ml/min (>90) 09/23/18 18:30 Est GFR (Non-Af Amer) > 60.0 ml/min 09/23/18 18:30 BUN/Creatinine Ratio 21.7 09/23/18 18:30 Glucose 91 mg/dL (70-105) 09/23/18 18:30 Calcium 9.9 mg/dL (8.6-10.3) 09/23/18 18:30 Total Bilirubin 0.4 mg/dL (0.3-1.0) 09/23/18 18:30 AST 12 U/L (13-39) L 09/23/18 18:30 ALT 10 U/L (7-52) 09/23/18 18:30 Alkaline Phosphatase 60 U/L (34-104) 09/23/18 18:30 Troponin I < 0.01 ng/mL (0.01-0.05) L 09/23/18 18:30 Total Protein 6.9 gm/dL (6.0-8.3) 09/23/18 18:30 Albumin 4.5 gm/dL (3.7-5.3) 09/23/18 18:30 Globulin 2.4 gm/dL 09/23/18 18:30 Albumin/Globulin Ratio 1.9 (1.0-1.8) H 09/23/18 18:30 Triglycerides 141 mg/dL (<150) 09/23/18 18:30 Cholesterol 129 mg/dL (<200) 09/23/18 18:30 LDL Cholesterol Direct 83 mg/dL (75-193) 09/23/18 18:30 HDL Cholesterol 32 mg/dL (23-92) 09/23/18 18:30 TSH 1.09 uIU/ml (0.34-5.60) 09/23/18 18:30 Urine Source CLEAN C 09/23/18 19:20 Urine Color YELLOW 09/23/18 19:20 Urine Clarity CLEAR (CLEAR) 09/23/18 19:20 Urine pH 7.0 (4.6 - 8.0) 09/23/18 19:20 Ur Specific [place] <= 1.005 (1.005-1.030) 09/23/18 19:20 Urine Protein NEGATIVE mg/dL (NEGATIVE) 09/23/18 19:20 Urine Glucose (UA) NEGATIVE mg/dL (NEGATIVE) 09/23/18 19:20 Urine Ketones NEGATIVE mg/dL (NEGATIVE) 09/23/18 19:20 Urine Blood NEGATIVE (NEGATIVE) 09/23/18 19:20 Urine Nitrate NEGATIVE (NEGATIVE) 09/23/18 19:20 Urine Bilirubin NEGATIVE (NEGATIVE) 09/23/18 19:20 Urine Urobilinogen 0.2 E.U./dL (0.2 - 1.0) 09/23/18 19:20 Ur Leukocyte Esterase NEGATIVE (NEGATIVE) 09/23/18 19:20 Urine RBC NONE SEEN /hpf (0-5) 09/23/18 19:20 Urine WBC NONE SEEN /hpf (0-5) 09/23/18 19:20 Ur Epithelial Cells RARE /lpf (FEW) 09/23/18 19:20 Urine Bacteria NONE SEEN /hpf (NONE SEEN) 09/23/18 19:20 RPR NONREACTIVE (NONREACTIVE) 09/23/18 18:30 - Physical Exam Vitals and I&O: Vital Signs Temp 97.8 F 09/27/18 06:00 Pulse 77 09/27/18 08:50 Resp 18 09/27/18 06:46 BP 137/63 09/27/18 08:50 Pulse Ox 96 09/27/18 06:46 Intake & Output 09/26/18 09/27/18 09/27/18 18:59 06:59 18:59 Intake Total 1450 240 Output Total 120 Balance 1450 120 Intake: Oral 1450 240 Output: Urine 120 Other: # Voids 3 2 # Bowel Movements 0 0 Active Medications: Current Medications Acetaminophen (Tylenol) 650 mg PO Q4HR PRN PRN Reason: Mild Pain / Temp above 100 Stop: 11/23/18 03:37 Al Hydrox/Mg Hydrox/Simethicone (Maalox) 30 ml PO Q6HR PRN PRN Reason: Indigestion Stop: 11/22/18 20:46 Albuterol Sulfate (Albuterol 2.5mg/3ml Neb Ud) 3 mg HHN Q6HR PRN PRN Reason: COPD Exacerbation Stop: 11/22/18 20:34 Amlodipine Besylate (Norvasc) 5 mg PO DAILY [facility] Stop: 11/23/18 08:59 Last Admin: 09/27/18 08:50 Dose: 5 mg Ascorbic Acid (Vitamin C) 500 mg PO DAILY [facility] Stop: 11/23/18 08:59 Last Admin: 09/27/18 08:51 Dose: 500 mg Atorvastatin Calcium (Lipitor) 20 mg PO HS [facility]; Protocol Stop: 11/22/18 20:59 Last Admin: 09/26/18 21:59 Dose: 20 mg Divalproex Sodium (Depakote Dr) 500 mg PO BID [facility]; Protocol Stop: 11/25/18 08:59 Docusate Sodium (Colace) 100 mg PO Q12HR [facility] Stop: 11/22/18 20:59 Last Admin: 09/27/18 08:51 Dose: 100 mg Fish Oil ([place] 3) 1,000 mg PO DAILY [facility] Stop: 11/23/18 08:59 Last Admin: 09/27/18 08:51 Dose: 1,000 mg Levothyroxine Sodium (Synthroid) 0.05 mg PO QDAC [facility] Stop: 11/23/18 07:29 Last Admin: 09/27/18 06:29 Dose: 0.05 mg Lidocaine (Lidoderm 5% Patch) 1 patch TD DAILY [facility] Stop: 11/23/18 08:59 Last Admin: 09/27/18 08:52 Dose: Not Given Lorazepam (Ativan) 0.5 mg PO Q4HR PRN; Protocol PRN Reason: Anxiety Stop: 10/23/18 20:30 Last Admin: 09/27/18 12:00 Dose: 0.5 mg Magnesium Hydroxide (Milk Of Magnesia) 30 ml PO DAILY PRN PRN Reason: Constipation Stop: 11/22/18 20:34 Multivitamins/Vitamin C (Theragran) 1 tab PO DAILY [facility] Stop: 11/23/18 08:59 Last Admin: 09/27/18 08:52 Dose: 1 tab Olanzapine (Zyprexa) 5 mg PO BID [facility]; Protocol Stop: 11/23/18 08:59 Last Admin: 09/27/18 08:51 Dose: 5 mg Trazodone HCl (Desyrel) 100 mg PO HS [facility]; Protocol Stop: 11/25/18 20:59 Last Admin: 09/26/18 22:00 Dose: 100 mg Zolpidem Tartrate (Ambien) 5 mg PO HS PRN PRN Reason: Insomnia Stop: 11/22/18 20:30 Last Admin: 09/26/18 22:24 Dose: 5 mg Physical Exam: 63 y/o female patient has been having severe mood swings, agitated and irritable. General: weak, demented HEENT: NC/AT Neck: Supple Lungs: CTAB Cardiovascular: RRR Abdomen: soft, non-tender Extremities: clear Neurological: no change - Procedures Procedures: Procedures Procedure Code Date COLONOSCOPY AND BIOPSY 96833 07/20/12 EGD BIOPSY SINGLE/MULTIPLE 80331 07/20/12 ENDOSCOPIC BIOPSY OF RECTUM 48.24 07/20/12 ESOPHAGOGASTRODUODENOSCOPY [EGD] W/CLOSED BIOPSY 45.16 07/20/12 OTHER GROUP THERAPY 94.44 09/16/11 Internal Medicine Assmt/Plan - Assessment Assessment: Psychosis. Htn. Hx of Dslipidemia. Thyroid disorder. Arthritis. Asthma. Schizophrenia. Bipolar disorder. Dementia. - Plan Plan: Continuation of care. Monitor Labs. Continue present meds as directed. Monitor vitals, Continue BP meds as directed. Monitor Diet/Nutritional support. Psych management per Psych. Pain Management. Physical therapy. Occupational therapy. Fall precaution, frequent nursing rounds, and as needed restraints to prevent fall. Safety precaution. Supportive care. Continue collaborating with consulting specialists, case management and nursing team. Will Monitor patient and continue present care management. Nutritional Asmnt/Malnutr-PDOC - Dietary Evaluation Malnutrition Findings (Please click <Entered> for more info): Nutritional Asmnt/Malnutrition Start: 09/26/18 12: 24 Text: Status: Complete Freq: Protocol: Document 09/26/18 12:24 KELSEY (Rec: 09/26/18 12:28 [email or web address]) Nutritional Asmnt/Malnutrition Patient General Information Nutritional Screening Moderate Risk Diagnosis PSYCHOSIS NOS Pertinent Medical Hx/Surgical Hx HTN, DYSLIPIDEMIA, THYROID DISORDER, ARTHRITIS, ASTHMA, SCHIZOPHRENIA, BIPOLAR DISORDER, DEMENTIA Subjective Information PT IS A 63 YEAR OLD FEMALE ADMITTED D/T AGITATION. HT: 53 WT: 160 LB 12.8 OZ (72.73 KG) ABW: 126 LB. (57.39 KG) BMI: 28.34 (OVERWEIGHT) GI: WNL, SOFT, NON-TENDER BM: NOT NOTED I/O: 1190/NOT NOTED SKIN: WNL, INTACT KWESI: 18 DIET ORDER: PUREED, KLAUDIA ESTIMATED ENERGY NEEDS: ( GERIATRIC, ABW) 7605-2384 KCALS (25-30 KCALS/ KG) 57-69 G PRO (1.0-1.2 G/KG) 1555-2640 ML (25-30 ML/KG) PT PO INTAKE: 75-100% MEALS PER MEAL/NUTRITION ACTIVITY RECORD. DIETARY IS CURRENTLY PROVIDING AN ESTIMATED 2548 KCALS AND 101 GM PRO. PER PT PO INTAKE, THIS IS PROVIDING AN ESTIMATED 2242 KCALS AND 89 GM PRO, TO MEET 100+% KCAL AND 100+% PRO NEEDS. Current Diet Order/ Nutrition Support PUREED, KLAUDIA Pertinent Medications MAALOX (PRN), ALBUTEROL (PRN), VIT C, LIPITOR, COLACE, FISH OIL, SYNTHROID, MOM (PRN), THEREGRAN Pertinent Labs 09/23: AST 12, TRP <0.01 Nutritional Hx/Data Height 1.6 m Height (Calculated Centimeters) 160.0 Current Weight (lbs) 72.575 kg Weight (Calculated Kilograms) 72.6 Weight (Calculated Grams) 61080.8 [place] Body Weight 115 % [place] Body Weight 139 Body Mass Index (BMI) 28.3 Weight Status Overweight GI Symptoms GI Symptoms None Last BM NOT NOTED Skin Integrity/Comment: WNL, INTACT Current %PO Good (75-100%) Estimated Nutritional Goals BEE in Kcals: Adj wt of IBW Calories/Kcals/Kg 25-30 Kcals Calculated 1391-5385 Protein: Adj wt of IBW Protein g/k.0-1.2 Protein Calculated 57-69 Fluid: ml 8687-1651 ML (25-30 ML/KG) Nutritional Problem No current Nutrition Prob Problem NO NUTRITION DIAGNOSIS AT THIS TIME. Etiology N/A Signs/Symptoms: N/A Malnutrition Related to Morbid Obesity Malnutrition related to morbid obesity No Intervention/Recommendation Comments CONTINUE WITH PUREED, KLAUDIA DIET ORDERED. Expected Outcomes/Goals Expected Outcomes/Goals 1. PO INTAKE TO MEET > 75% OF NUTRITIONAL NEEDS. 2. MONITOR PO INTAKE, WT, NUTRITION RELATED LABS AND SKIN INTEGRITY. 3. F/U LOW RISK IN 7 DAYS, 10/03
[2018-09-27] MEDS: Atorvastatin Calcium 10 MG TAB PO SCH (20:34)
[2018-09-28] MEDS: Levothyroxine 0.05 Mg Tab PO SCH (06:31)
[2018-09-28] MEDS: Multivitamin Tab PO SCH (08:28)
[2018-09-28] MEDS: Fish Oil 1,000 MG SGL PO SCH (08:29)
[2018-09-28] MEDS: Lidocaine 5% Patch TD SCH (08:31)
--- NOTE | 2018-09-28 15:34 | Progress Notes ---
DATE: SUBJECTIVE: Chart was reviewed and the patient interviewed. Also discussed the patient's condition with the staff and reviewed records and labs. The patient continued to be agitated and ____ mood. The patient also has episodes of yelling and screaming. She also is still wandering around the unit in a confused state. Otherwise, the patient is compliant taking the medications. No side effect of the medications. ASSESSMENT: The patient is ____ psychotic. TREATMENT PLAN: Depakote was increased yesterday as well as trazodone, which did help the patient sleep at night, but the patient is still agitated. Continue same treatment and monitor her behavior and her condition closely. [facility]# [id number]
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
[2018-09-28] MEDS: Atorvastatin Calcium 10 MG TAB PO SCH (20:35)
[2018-09-29] MEDS: Levothyroxine 0.05 Mg Tab PO SCH (06:43)
--- NOTE | 2018-09-29 07:35 | Internal Medicine Prog Note ---
Internal Medicine Subjective - Subjective Service Date: 09/29/18 Patient is:: awake, verbal, agitated, confused Patient Complaints of:: other (Hx of Dementia.) Per staff patient has:: no adverse event, no episodes of fall Internal Medicine Objective - Results Result Diagrams: 09/23/18 18:30 09/23/18 18:30 Recent Labs: Laboratory Last Values WBC 14.5 Th/cmm (4.8-10.8) H 09/23/18 18:30 RBC 4.77 Mil/cmm (3.80-5.20) 09/23/18 18:30 Hgb 14.1 gm/dL (12-16) 09/23/18 18:30 Hct 42.1 % (41.0-60) 09/23/18 18:30 MCV 88.2 fl (81-100) 09/23/18 18:30 MCH 29.5 pg (27.0-31.0) 09/23/18 18:30 MCHC Differential 33.5 pg (28.0-36.0) 09/23/18 18:30 RDW 14.2 % (11.5-20.0) 09/23/18 18:30 Plt Count 186 Th/cmm (150-400) 09/23/18 18:30 MPV 9.1 fl 09/23/18 18:30 Add Manual Diff YES 09/23/18 18:30 Band Neutrophils % 0 % (0-10) 09/23/18 18:30 Neutrophils (Manual) 25 % (40-80) L 09/23/18 18:30 Lymphocytes 69 % (20-50) H 09/23/18 18:30 Monocytes 3 % (2-10) 09/23/18 18:30 Eosinophils 3 % (0-5) 09/23/18 18:30 Basophils 0 % (0-3) 09/23/18 18:30 Platelet Estimate ADEQUATE (NORMAL) 09/23/18 18:30 PT 10.1 SECONDS (9.5-11.5) 09/23/18 18:30 INR 0.97 (0.5-1.4) 09/23/18 18:30 PTT (Actin FS) 23.4 SECONDS (26.0-38.0) L 09/23/18 18:30 Sodium 139 mEq/L (136-145) 09/23/18 18:30 Potassium 4.1 mEq/L (3.5-5.1) 09/23/18 18:30 Chloride 105 mEq/L (98-107) 09/23/18 18:30 Carbon Dioxide 26.3 mEq/L (21.0-31.0) 09/23/18 18:30 Anion Gap 11.8 (7.0-16.0) 09/23/18 18:30 BUN 13 mg/dL (7-25) 09/23/18 18:30 Creatinine 0.6 mg/dL (0.6-1.2) 09/23/18 18:30 Est GFR ( Amer) > 60.0 ml/min (>90) 09/23/18 18:30 Est GFR (Non-Af Amer) > 60.0 ml/min 09/23/18 18:30 BUN/Creatinine Ratio 21.7 09/23/18 18:30 Glucose 91 mg/dL (70-105) 09/23/18 18:30 Calcium 9.9 mg/dL (8.6-10.3) 09/23/18 18:30 Total Bilirubin 0.4 mg/dL (0.3-1.0) 09/23/18 18:30 AST 12 U/L (13-39) L 09/23/18 18:30 ALT 10 U/L (7-52) 09/23/18 18:30 Alkaline Phosphatase 60 U/L (34-104) 09/23/18 18:30 Troponin I < 0.01 ng/mL (0.01-0.05) L 09/23/18 18:30 Total Protein 6.9 gm/dL (6.0-8.3) 09/23/18 18:30 Albumin 4.5 gm/dL (3.7-5.3) 09/23/18 18:30 Globulin 2.4 gm/dL 09/23/18 18:30 Albumin/Globulin Ratio 1.9 (1.0-1.8) H 09/23/18 18:30 Triglycerides 141 mg/dL (<150) 09/23/18 18:30 Cholesterol 129 mg/dL (<200) 09/23/18 18:30 LDL Cholesterol Direct 83 mg/dL (75-193) 09/23/18 18:30 HDL Cholesterol 32 mg/dL (23-92) 09/23/18 18:30 TSH 1.09 uIU/ml (0.34-5.60) 09/23/18 18:30 Urine Source CLEAN C 09/23/18 19:20 Urine Color YELLOW 09/23/18 19:20 Urine Clarity CLEAR (CLEAR) 09/23/18 19:20 Urine pH 7.0 (4.6 - 8.0) 09/23/18 19:20 Ur Specific [place] <= 1.005 (1.005-1.030) 09/23/18 19:20 Urine Protein NEGATIVE mg/dL (NEGATIVE) 09/23/18 19:20 Urine Glucose (UA) NEGATIVE mg/dL (NEGATIVE) 09/23/18 19:20 Urine Ketones NEGATIVE mg/dL (NEGATIVE) 09/23/18 19:20 Urine Blood NEGATIVE (NEGATIVE) 09/23/18 19:20 Urine Nitrate NEGATIVE (NEGATIVE) 09/23/18 19:20 Urine Bilirubin NEGATIVE (NEGATIVE) 09/23/18 19:20 Urine Urobilinogen 0.2 E.U./dL (0.2 - 1.0) 09/23/18 19:20 Ur Leukocyte Esterase NEGATIVE (NEGATIVE) 09/23/18 19:20 Urine RBC NONE SEEN /hpf (0-5) 09/23/18 19:20 Urine WBC NONE SEEN /hpf (0-5) 09/23/18 19:20 Ur Epithelial Cells RARE /lpf (FEW) 09/23/18 19:20 Urine Bacteria NONE SEEN /hpf (NONE SEEN) 09/23/18 19:20 RPR NONREACTIVE (NONREACTIVE) 09/23/18 18:30 - Physical Exam Vitals and I&O: Vital Signs Temp 98.4 F 09/29/18 06:29 Pulse 97 09/29/18 07:17 Resp 18 09/29/18 07:17 BP 134/72 09/29/18 06:29 Pulse Ox 98 09/29/18 07:17 Intake & Output 09/28/18 09/29/18 09/29/18 18:59 06:59 18:59 Intake Total 1250 120 Balance 1250 120 Intake: Oral 1250 120 Other: # Voids 3 # Bowel Movements 1 Active Medications: Current Medications Acetaminophen (Tylenol) 650 mg PO Q4HR PRN PRN Reason: Mild Pain / Temp above 100 Stop: 11/23/18 03:37 Last Admin: 09/29/18 04:17 Dose: 650 mg Al Hydrox/Mg Hydrox/Simethicone (Maalox) 30 ml PO Q6HR PRN PRN Reason: Indigestion Stop: 11/22/18 20:46 Albuterol Sulfate (Albuterol 2.5mg/3ml Neb Ud) 3 mg HHN Q6HR PRN PRN Reason: COPD Exacerbation Stop: 11/22/18 20:34 Amlodipine Besylate (Norvasc) 5 mg PO DAILY MAISHA Stop: 11/23/18 08:59 Last Admin: 09/28/18 08:30 Dose: 5 mg Ascorbic Acid (Vitamin C) 500 mg PO DAILY MAISHA Stop: 11/23/18 08:59 Last Admin: 09/28/18 08:29 Dose: 500 mg Atorvastatin Calcium (Lipitor) 20 mg PO HS [facility]; Protocol Stop: 11/22/18 20:59 Last Admin: 09/28/18 20:35 Dose: 20 mg Divalproex Sodium (Depakote Dr) 500 mg PO BID MAISHA; Protocol Stop: 11/25/18 08:59 Last Admin: 09/28/18 16:05 Dose: 500 mg Docusate Sodium (Colace) 100 mg PO Q12HR MAISHA Stop: 11/22/18 20:59 Last Admin: 09/28/18 20:36 Dose: 100 mg Fish Oil ([place] 3) 1,000 mg PO DAILY MAISHA Stop: 11/23/18 08:59 Last Admin: 09/28/18 08:29 Dose: 1,000 mg Levothyroxine Sodium (Synthroid) 0.05 mg PO QDAC MAISHA Stop: 11/23/18 07:29 Last Admin: 09/29/18 06:43 Dose: 0.05 mg Lidocaine (Lidoderm 5% Patch) 1 patch TD DAILY MAISHA Stop: 11/23/18 08:59 Last Admin: 09/28/18 08:31 Dose: 1 patch Lorazepam (Ativan) 0.5 mg PO Q4HR PRN; Protocol PRN Reason: Anxiety Stop: 10/23/18 20:30 Last Admin: 09/28/18 14:16 Dose: 0.5 mg Magnesium Hydroxide (Milk Of Magnesia) 30 ml PO DAILY PRN PRN Reason: Constipation Stop: 11/22/18 20:34 Multivitamins/Vitamin C (Theragran) 1 tab PO DAILY MAISHA Stop: 11/23/18 08:59 Last Admin: 09/28/18 08:28 Dose: 1 tab Olanzapine (Zyprexa) 5 mg PO BID MAISHA; Protocol Stop: 11/23/18 08:59 Last Admin: 09/28/18 16:06 Dose: 5 mg Trazodone HCl (Desyrel) 100 mg PO HS MAISHA; Protocol Stop: 11/25/18 20:59 Last Admin: 09/28/18 20:36 Dose: 100 mg Zolpidem Tartrate (Ambien) 5 mg PO HS PRN PRN Reason: Insomnia Stop: 11/22/18 20:30 Last Admin: 09/27/18 20:35 Dose: 5 mg General: weak, demented HEENT: NC/AT Neck: Supple Lungs: CTAB Cardiovascular: RRR Abdomen: soft, non-tender Extremities: clear Neurological: no change - Procedures Procedures: Procedures Procedure Code Date COLONOSCOPY AND BIOPSY 69759 07/20/12 EGD BIOPSY SINGLE/MULTIPLE 43257 07/20/12 ENDOSCOPIC BIOPSY OF RECTUM 48.24 07/20/12 ESOPHAGOGASTRODUODENOSCOPY [EGD] W/CLOSED BIOPSY 45.16 07/20/12 OTHER GROUP THERAPY 94.44 09/16/11 Internal Medicine Assmt/Plan - Assessment Assessment: Psychosis. Htn. Hx of Dslipidemia. Thyroid disorder. Arthritis. Asthma. Schizophrenia. Bipolar disorder. Dementia. - Plan Plan: Continuation of care. Monitor Labs. Continue present meds as directed. Monitor vitals, Continue BP meds as directed. Monitor Diet/Nutritional support. Psych management per Psych. Pain Management. Physical therapy. Occupational therapy. Fall precaution, frequent nursing rounds, and as needed restraints to prevent fall. Safety precaution. Supportive care. Continue collaborating with consulting specialists, case management and nursing team. Will Monitor patient and continue present care management. Nutritional Asmnt/Malnutr-PDOC - Dietary Evaluation Malnutrition Findings (Please click <Entered> for more info): Nutritional Asmnt/Malnutrition Start: 09/26/18 12: 24 Text: Status: Complete Freq: Protocol: Document 09/26/18 12:24 KELSEY (Rec: 09/26/18 12:28 KELSEY [email or web address]) Nutritional Asmnt/Malnutrition Patient General Information Nutritional Screening Moderate Risk Diagnosis PSYCHOSIS NOS Pertinent Medical Hx/Surgical Hx HTN, DYSLIPIDEMIA, THYROID DISORDER, ARTHRITIS, ASTHMA, SCHIZOPHRENIA, BIPOLAR DISORDER, DEMENTIA Subjective Information PT IS A 63 YEAR OLD FEMALE ADMITTED D/T AGITATION. HT: 53 WT: 160 LB 12.8 OZ (72.73 KG) ABW: 126 LB. (57.39 KG) BMI: 28.34 (OVERWEIGHT) GI: WNL, SOFT, NON-TENDER BM: NOT NOTED I/O: 1190/NOT NOTED SKIN: WNL, INTACT KWESI: 18 DIET ORDER: PUREED, KLAUDIA ESTIMATED ENERGY NEEDS: ( GERIATRIC, ABW) 8556-2990 KCALS (25-30 KCALS/ KG) 57-69 G PRO (1.0-1.2 G/KG) 5910-3394 ML (25-30 ML/KG) PT PO INTAKE: 75-100% MEALS PER MEAL/NUTRITION ACTIVITY RECORD. DIETARY IS CURRENTLY PROVIDING AN ESTIMATED 2548 KCALS AND 101 GM PRO. PER PT PO INTAKE, THIS IS PROVIDING AN ESTIMATED 2242 KCALS AND 89 GM PRO, TO MEET 100+% KCAL AND 100+% PRO NEEDS. Current Diet Order/ Nutrition Support PUREED, KLAUDIA Pertinent Medications MAALOX (PRN), ALBUTEROL (PRN), VIT C, LIPITOR, COLACE, FISH OIL, SYNTHROID, MOM (PRN), THEREGRAN Pertinent Labs 09/23: AST 12, TRP <0.01 Nutritional Hx/Data Height 5 ft 3 in Height (Calculated Centimeters) 160.0 Current Weight (lbs) 160 lb Weight (Calculated Kilograms) 72.6 Weight (Calculated Grams) 05582.8 [place] Body Weight 115 % [place] Body Weight 139 Body Mass Index (BMI) 28.3 Weight Status Overweight GI Symptoms GI Symptoms None Last BM NOT NOTED Skin Integrity/Comment: WNL, INTACT Current %PO Good (75-100%) Estimated Nutritional Goals BEE in Kcals: Adj wt of IBW Calories/Kcals/Kg 25-30 Kcals Calculated 2181-4397 Protein: Adj wt of IBW Protein g/k.0-1.2 Protein Calculated 57-69 Fluid: ml 3969-5851 ML (25-30 ML/KG) Nutritional Problem No current Nutrition Prob Problem NO NUTRITION DIAGNOSIS AT THIS TIME. Etiology N/A Signs/Symptoms: N/A Malnutrition Related to Morbid Obesity Malnutrition related to morbid obesity No Intervention/Recommendation Comments CONTINUE WITH PUREED, KLAUDIA DIET ORDERED. Expected Outcomes/Goals Expected Outcomes/Goals 1. PO INTAKE TO MEET > 75% OF NUTRITIONAL NEEDS. 2. MONITOR PO INTAKE, WT, NUTRITION RELATED LABS AND SKIN INTEGRITY. 3. F/U LOW RISK IN 7 DAYS, 10/03
[2018-09-29] MEDS: Fish Oil 1,000 MG SGL PO SCH (08:43)
[2018-09-29] MEDS: Multivitamin Tab PO SCH (08:43)
[2018-09-29] MEDS: Lidocaine 5% Patch TD SCH (08:43)
[2018-09-29] MEDS: Atorvastatin Calcium 10 MG TAB PO SCH (21:45)
--- NOTE | 2018-09-29 22:54 | Progress Notes ---
DATE: 09/29/[address] Lund. Case was discussed with staff of the patient and reviewed records. The patient continues to be unpredictable, impulsive, easily agitated, continues to have poor insight, confused, irritable, angry, tolerating increase in trazodone and Zyprexa with no sedation, nausea, no extrapyramidal symptoms and working on discharge plan. We will continue the patient in group therapy, milieu therapy and adjust the medications as needed. JOB# [id number]
[2018-09-30] MEDS: Levothyroxine 0.05 Mg Tab PO SCH (06:30)
[2018-09-30] MEDS: Lidocaine 5% Patch TD SCH (08:45)
[2018-09-30] MEDS: Multivitamin Tab PO SCH (08:47)
[2018-09-30] MEDS: Fish Oil 1,000 MG SGL PO SCH (08:47)
--- NOTE | 2018-09-30 10:23 | Progress Notes ---
DATE: PSYCHIATRIC PROGRESS NOTE SUBJECTIVE: Chart was reviewed and the patient interviewed. Also discussed the patient's condition with the staff and reviewed records and labs. The patient is still focused on food and she is still agitated and easily irritable and easily angry. The patient also ____. The patient also is still wandering around with the wheelchair ____. She also still needs lots of redirections. Otherwise, the patient is compliant with taking her medications with no side effects of medications. ASSESSMENT: The patient is still agitated, but seems to be slightly easier to redirect her. TREATMENT PLAN: Continue adjusting psychotropic medications. Also, continue working on her behavior and behavior modification and continue to follow up closely. [facility]# [id number]
--- NOTE | 2018-09-30 15:48 | Progress Notes ---
DATE: 09/30/2018 SUBJECTIVE: The patient in the hospital remains unpredictable, impulsive, easily agitated, poor insight. The patient rolling around in a wheelchair, stating that Dr. Ruano told her she is going to leave. Feeling targeted, paranoid, feeling that everybody "blames me", intrusive, loud, slept about 7 hours, yelling at other residents. Saying there are monsters under her bed, still bizarre, symptomatic. We will continue to monitor, address underlying mood symptoms, psychotic symptoms. Consider dose increase of the Zyprexa to 7.5 mg twice daily. We will continue to monitor. JOB# [id number]
--- NOTE | 2018-09-30 16:38 | Progress Notes ---
DATE: 09/30/2018 SUBJECTIVE: The patient was seen in room. The patient is awake, appears to be guarded, poor historian. Otherwise, the patient appears to be in no acute distress. OBJECTIVE: VITAL SIGNS: Temperature 98.6, heart rate of 82, blood pressure 138/72, respiration 20, 98% on room air. HEENT: Head is atraumatic and normocephalic. Eyes: Bilateral conjunctivae are clear. Bilateral pupils are equally round and reactive. NECK: Supple. No JVD. CARDIOVASCULAR: S1 and S2, without murmur. PULMONARY: Clear to auscultation. GASTROINTESTINAL: Soft and nontender without guarding. Positive bowel sounds. MUSCULOSKELETAL: No clubbing. No cyanosis noted. ASSESSMENT: 1. Dementia. 2. Hypertension. 3. Hyperlipidemia. 4. Hypothyroidism. 5. Osteoarthritis. PLAN: We will continue current treatment. We will continue to monitor the patient's condition and behavior. Treatment plans discussed with the patient's nurse. Treatment plans were discussed with Dr. Garcia. JOB# [id number]
[2018-09-30] MEDS: Atorvastatin Calcium 10 MG TAB PO SCH (20:02)
[2018-10-01] MEDS: Levothyroxine 0.05 Mg Tab PO SCH (06:30)
[2018-10-01] MEDS: Multivitamin Tab PO SCH (08:22)
[2018-10-01] MEDS: Fish Oil 1,000 MG SGL PO SCH (08:22)
[2018-10-01] MEDS: Lidocaine 5% Patch TD SCH (08:26)
--- NOTE | 2018-10-01 10:15 | Internal Medicine Prog Note ---
Internal Medicine Subjective - Subjective Patient seen and examined:: with staff Patient is:: awake, verbal, agitated, confused Patient Complaints of:: other (Hx of Dementia.) Per staff patient has:: no adverse event, no episodes of fall Internal Medicine Objective - Results Result Diagrams: 09/23/18 18:30 09/23/18 18:30 Recent Labs: Laboratory Last Values WBC 14.5 Th/cmm (4.8-10.8) H 09/23/18 18:30 RBC 4.77 Mil/cmm (3.80-5.20) 09/23/18 18:30 Hgb 14.1 gm/dL (12-16) 09/23/18 18:30 Hct 42.1 % (41.0-60) 09/23/18 18:30 MCV 88.2 fl (81-100) 09/23/18 18:30 MCH 29.5 pg (27.0-31.0) 09/23/18 18:30 MCHC Differential 33.5 pg (28.0-36.0) 09/23/18 18:30 RDW 14.2 % (11.5-20.0) 09/23/18 18:30 Plt Count 186 Th/cmm (150-400) 09/23/18 18:30 MPV 9.1 fl 09/23/18 18:30 Add Manual Diff YES 09/23/18 18:30 Band Neutrophils % 0 % (0-10) 09/23/18 18:30 Neutrophils (Manual) 25 % (40-80) L 09/23/18 18:30 Lymphocytes 69 % (20-50) H 09/23/18 18:30 Monocytes 3 % (2-10) 09/23/18 18:30 Eosinophils 3 % (0-5) 09/23/18 18:30 Basophils 0 % (0-3) 09/23/18 18:30 Platelet Estimate ADEQUATE (NORMAL) 09/23/18 18:30 PT 10.1 SECONDS (9.5-11.5) 09/23/18 18:30 INR 0.97 (0.5-1.4) 09/23/18 18:30 PTT (Actin FS) 23.4 SECONDS (26.0-38.0) L 09/23/18 18:30 Sodium 139 mEq/L (136-145) 09/23/18 18:30 Potassium 4.1 mEq/L (3.5-5.1) 09/23/18 18:30 Chloride 105 mEq/L (98-107) 09/23/18 18:30 Carbon Dioxide 26.3 mEq/L (21.0-31.0) 09/23/18 18:30 Anion Gap 11.8 (7.0-16.0) 09/23/18 18:30 BUN 13 mg/dL (7-25) 09/23/18 18:30 Creatinine 0.6 mg/dL (0.6-1.2) 09/23/18 18:30 Est GFR ( Amer) > 60.0 ml/min (>90) 09/23/18 18:30 Est GFR (Non-Af Amer) > 60.0 ml/min 09/23/18 18:30 BUN/Creatinine Ratio 21.7 09/23/18 18:30 Glucose 91 mg/dL (70-105) 09/23/18 18:30 Calcium 9.9 mg/dL (8.6-10.3) 09/23/18 18:30 Total Bilirubin 0.4 mg/dL (0.3-1.0) 09/23/18 18:30 AST 12 U/L (13-39) L 09/23/18 18:30 ALT 10 U/L (7-52) 09/23/18 18:30 Alkaline Phosphatase 60 U/L (34-104) 09/23/18 18:30 Troponin I < 0.01 ng/mL (0.01-0.05) L 09/23/18 18:30 Total Protein 6.9 gm/dL (6.0-8.3) 09/23/18 18:30 Albumin 4.5 gm/dL (3.7-5.3) 09/23/18 18:30 Globulin 2.4 gm/dL 09/23/18 18:30 Albumin/Globulin Ratio 1.9 (1.0-1.8) H 09/23/18 18:30 Triglycerides 141 mg/dL (<150) 09/23/18 18:30 Cholesterol 129 mg/dL (<200) 09/23/18 18:30 LDL Cholesterol Direct 83 mg/dL (75-193) 09/23/18 18:30 HDL Cholesterol 32 mg/dL (23-92) 09/23/18 18:30 TSH 1.09 uIU/ml (0.34-5.60) 09/23/18 18:30 Urine Source CLEAN C 09/23/18 19:20 Urine Color YELLOW 09/23/18 19:20 Urine Clarity CLEAR (CLEAR) 09/23/18 19:20 Urine pH 7.0 (4.6 - 8.0) 09/23/18 19:20 Ur Specific [place] <= 1.005 (1.005-1.030) 09/23/18 19:20 Urine Protein NEGATIVE mg/dL (NEGATIVE) 09/23/18 19:20 Urine Glucose (UA) NEGATIVE mg/dL (NEGATIVE) 09/23/18 19:20 Urine Ketones NEGATIVE mg/dL (NEGATIVE) 09/23/18 19:20 Urine Blood NEGATIVE (NEGATIVE) 09/23/18 19:20 Urine Nitrate NEGATIVE (NEGATIVE) 09/23/18 19:20 Urine Bilirubin NEGATIVE (NEGATIVE) 09/23/18 19:20 Urine Urobilinogen 0.2 E.U./dL (0.2 - 1.0) 09/23/18 19:20 Ur Leukocyte Esterase NEGATIVE (NEGATIVE) 09/23/18 19:20 Urine RBC NONE SEEN /hpf (0-5) 09/23/18 19:20 Urine WBC NONE SEEN /hpf (0-5) 09/23/18 19:20 Ur Epithelial Cells RARE /lpf (FEW) 09/23/18 19:20 Urine Bacteria NONE SEEN /hpf (NONE SEEN) 09/23/18 19:20 RPR NONREACTIVE (NONREACTIVE) 09/23/18 18:30 - Physical Exam Vitals and I&O: Vital Signs Temp 97.9 F 10/01/18 06:27 Pulse 90 10/01/18 08:23 Resp 18 10/01/18 07:29 BP 151/65 10/01/18 08:23 Pulse Ox 96 10/01/18 07:29 Intake & Output 09/30/18 10/01/18 10/01/18 18:59 06:59 18:59 Intake Total 240 Balance 240 Intake: Oral 240 Other: # Voids 2 # Bowel Movements 0 Active Medications: Current Medications Acetaminophen (Tylenol) 650 mg PO Q4HR PRN PRN Reason: Mild Pain / Temp above 100 Stop: 11/23/18 03:37 Last Admin: 09/30/18 11:45 Dose: 650 mg Al Hydrox/Mg Hydrox/Simethicone (Maalox) 30 ml PO Q6HR PRN PRN Reason: Indigestion Stop: 11/22/18 20:46 Albuterol Sulfate (Albuterol 2.5mg/3ml Neb Ud) 3 mg HHN Q6HR PRN PRN Reason: COPD Exacerbation Stop: 11/22/18 20:34 Amlodipine Besylate (Norvasc) 5 mg PO DAILY MAISHA Stop: 11/23/18 08:59 Last Admin: 10/01/18 08:23 Dose: 5 mg Ascorbic Acid (Vitamin C) 500 mg PO DAILY MAISHA Stop: 11/23/18 08:59 Last Admin: 10/01/18 08:23 Dose: 500 mg Atorvastatin Calcium (Lipitor) 20 mg PO HS MAISHA; Protocol Stop: 11/22/18 20:59 Last Admin: 09/30/18 20:02 Dose: 20 mg Divalproex Sodium (Depakote Dr) 500 mg PO BID MAISHA; Protocol Stop: 11/25/18 08:59 Last Admin: 10/01/18 08:22 Dose: 500 mg Docusate Sodium (Colace) 100 mg PO Q12HR MAISHA Stop: 11/22/18 20:59 Last Admin: 10/01/18 08:22 Dose: 100 mg Fish Oil ([place] 3) 1,000 mg PO DAILY MAISHA Stop: 11/23/18 08:59 Last Admin: 10/01/18 08:22 Dose: 1,000 mg Levothyroxine Sodium (Synthroid) 0.05 mg PO QDAC MAISHA Stop: 11/23/18 07:29 Last Admin: 10/01/18 06:30 Dose: 0.05 mg Lidocaine (Lidoderm 5% Patch) 1 patch TD DAILY MAISHA Stop: 11/23/18 08:59 Last Admin: 10/01/18 08:26 Dose: 1 patch Lorazepam (Ativan) 0.5 mg PO Q4HR PRN; Protocol PRN Reason: Anxiety Stop: 10/23/18 20:30 Last Admin: 09/30/18 20:02 Dose: 0.5 mg Magnesium Hydroxide (Milk Of Magnesia) 30 ml PO DAILY PRN PRN Reason: Constipation Stop: 11/22/18 20:34 Multivitamins/Vitamin C (Theragran) 1 tab PO DAILY MAISHA Stop: 11/23/18 08:59 Last Admin: 10/01/18 08:22 Dose: 1 tab Olanzapine (Zyprexa) 7.5 mg PO BID MAISHA; Protocol Stop: 11/29/18 08:59 Last Admin: 10/01/18 08:22 Dose: 7.5 mg Trazodone HCl (Desyrel) 100 mg PO HS MAISHA; Protocol Stop: 11/25/18 20:59 Last Admin: 09/30/18 20:02 Dose: 100 mg Zolpidem Tartrate (Ambien) 5 mg PO HS PRN PRN Reason: Insomnia Stop: 11/22/18 20:30 Last Admin: 09/29/18 21:45 Dose: 5 mg General: weak, demented, other (child like behavior.) HEENT: NC/AT Neck: Supple Lungs: CTAB Cardiovascular: RRR Abdomen: soft, non-tender Extremities: clear Neurological: no change - Procedures Procedures: Procedures Procedure Code Date COLONOSCOPY AND BIOPSY 97931 07/20/12 EGD BIOPSY SINGLE/MULTIPLE 17350 07/20/12 ENDOSCOPIC BIOPSY OF RECTUM 48.24 07/20/12 ESOPHAGOGASTRODUODENOSCOPY [EGD] W/CLOSED BIOPSY 45.16 07/20/12 OTHER GROUP THERAPY 94.44 09/16/11 Internal Medicine Assmt/Plan - Assessment Assessment: Psychosis. Htn. Hx of Dslipidemia. Thyroid disorder. Arthritis. Asthma. Schizophrenia. Bipolar disorder. Dementia. . - Plan Plan: Continuation of care. Monitor Labs. Continue present meds as directed. Monitor vitals, Continue BP meds as directed. Monitor Diet/Nutritional support. Psych management per Psych. Pain Management. Physical therapy. Occupational therapy. Fall precaution, frequent nursing rounds, and as needed restraints to prevent fall. Safety precaution. Supportive care. Continue collaborating with consulting specialists, case management and nursing team. Will Monitor patient and continue present care management Nutritional Asmnt/Malnutr-PDOC - Dietary Evaluation Malnutrition Findings (Please click <Entered> for more info): Nutritional Asmnt/Malnutrition Start: 09/26/18 12: 24 Text: Status: Complete Freq: Protocol: Document 09/26/18 12:24 KELSEY (Rec: 09/26/18 12:28 KELSEY [email or web address]) Nutritional Asmnt/Malnutrition Patient General Information Nutritional Screening Moderate Risk Diagnosis PSYCHOSIS NOS Pertinent Medical Hx/Surgical Hx HTN, DYSLIPIDEMIA, THYROID DISORDER, ARTHRITIS, ASTHMA, SCHIZOPHRENIA, BIPOLAR DISORDER, DEMENTIA Subjective Information PT IS A 63 YEAR OLD FEMALE ADMITTED D/T AGITATION. HT: 53 WT: 160 LB 12.8 OZ (72.73 KG) ABW: 126 LB. (57.39 KG) BMI: 28.34 (OVERWEIGHT) GI: WNL, SOFT, NON-TENDER BM: NOT NOTED I/O: 1190/NOT NOTED SKIN: WNL, INTACT KWESI: 18 DIET ORDER: PUREED, KLAUDIA ESTIMATED ENERGY NEEDS: ( GERIATRIC, ABW) 7585-7436 KCALS (25-30 KCALS/ KG) 57-69 G PRO (1.0-1.2 G/KG) 1432-8616 ML (25-30 ML/KG) PT PO INTAKE: 75-100% MEALS PER MEAL/NUTRITION ACTIVITY RECORD. DIETARY IS CURRENTLY PROVIDING AN ESTIMATED 2548 KCALS AND 101 GM PRO. PER PT PO INTAKE, THIS IS PROVIDING AN ESTIMATED 2242 KCALS AND 89 GM PRO, TO MEET 100+% KCAL AND 100+% PRO NEEDS. Current Diet Order/ Nutrition Support PUREED, KLAUDIA Pertinent Medications MAALOX (PRN), ALBUTEROL (PRN), VIT C, LIPITOR, COLACE, FISH OIL, SYNTHROID, MOM (PRN), THEREGRAN Pertinent Labs 09/23: AST 12, TRP <0.01 Nutritional Hx/Data Height 5 ft 3 in Height (Calculated Centimeters) 160.0 Current Weight (lbs) 160 lb Weight (Calculated Kilograms) 72.6 Weight (Calculated Grams) 07157.8 [place] Body Weight 115 % [place] Body Weight 139 Body Mass Index (BMI) 28.3 Weight Status Overweight GI Symptoms GI Symptoms None Last BM NOT NOTED Skin Integrity/Comment: WNL, INTACT Current %PO Good (75-100%) Estimated Nutritional Goals BEE in Kcals: Adj wt of IBW Calories/Kcals/Kg 25-30 Kcals Calculated 0997-7995 Protein: Adj wt of IBW Protein g/k.0-1.2 Protein Calculated 57-69 Fluid: ml 1498-7299 ML (25-30 ML/KG) Nutritional Problem No current Nutrition Prob Problem NO NUTRITION DIAGNOSIS AT THIS TIME. Etiology N/A Signs/Symptoms: N/A Malnutrition Related to Morbid Obesity Malnutrition related to morbid obesity No Intervention/Recommendation Comments CONTINUE WITH PUREED, KLAUDIA DIET ORDERED. Expected Outcomes/Goals Expected Outcomes/Goals 1. PO INTAKE TO MEET > 75% OF NUTRITIONAL NEEDS. 2. MONITOR PO INTAKE, WT, NUTRITION RELATED LABS AND SKIN INTEGRITY. 3. F/U LOW RISK IN 7 DAYS, 10/03
--- NOTE | 2018-10-01 17:23 | Progress Notes ---
DATE: 10/01/2018 SUBJECTIVE: The patient in the hospital, unpredictable, impulsive, remains agitated, going into other people's rooms, stealing their belongings, upsetting them a lot. Patient labile, yelling, screaming, confused, believing she is going home today, asking why she is not going home, easily agitated, believing has monsters under her bed, screaming at staff. Ongoing safety concerns. 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 We will continue to monitor. Recent dose increase of Zyprexa. JOB# [id number]
[2018-10-01] MEDS: Atorvastatin Calcium 10 MG TAB PO SCH (21:42)
[2018-10-02] MEDS: Levothyroxine 0.05 Mg Tab PO SCH (06:51)
[2018-10-02] MEDS: Lidocaine 5% Patch TD SCH (08:05)
[2018-10-02] MEDS: Multivitamin Tab PO SCH (08:36)
[2018-10-02] MEDS: Fish Oil 1,000 MG SGL PO SCH (08:36)
--- NOTE | 2018-10-02 10:11 | Internal Medicine Prog Note ---
Internal Medicine Subjective - Subjective Service Date: 10/02/18 Patient seen and examined:: with staff Patient is:: awake, verbal, agitated, confused Patient Complaints of:: other (Hx of Dementia.) Per staff patient has:: no adverse event, no episodes of fall Internal Medicine Objective - Results Result Diagrams: 09/23/18 18:30 09/23/18 18:30 Recent Labs: Laboratory Last Values WBC 14.5 Th/cmm (4.8-10.8) H 09/23/18 18:30 RBC 4.77 Mil/cmm (3.80-5.20) 09/23/18 18:30 Hgb 14.1 gm/dL (12-16) 09/23/18 18:30 Hct 42.1 % (41.0-60) 09/23/18 18:30 MCV 88.2 fl (81-100) 09/23/18 18:30 MCH 29.5 pg (27.0-31.0) 09/23/18 18:30 MCHC Differential 33.5 pg (28.0-36.0) 09/23/18 18:30 RDW 14.2 % (11.5-20.0) 09/23/18 18:30 Plt Count 186 Th/cmm (150-400) 09/23/18 18:30 MPV 9.1 fl 09/23/18 18:30 Add Manual Diff YES 09/23/18 18:30 Band Neutrophils % 0 % (0-10) 09/23/18 18:30 Neutrophils (Manual) 25 % (40-80) L 09/23/18 18:30 Lymphocytes 69 % (20-50) H 09/23/18 18:30 Monocytes 3 % (2-10) 09/23/18 18:30 Eosinophils 3 % (0-5) 09/23/18 18:30 Basophils 0 % (0-3) 09/23/18 18:30 Platelet Estimate ADEQUATE (NORMAL) 09/23/18 18:30 PT 10.1 SECONDS (9.5-11.5) 09/23/18 18:30 INR 0.97 (0.5-1.4) 09/23/18 18:30 PTT (Actin FS) 23.4 SECONDS (26.0-38.0) L 09/23/18 18:30 Sodium 139 mEq/L (136-145) 09/23/18 18:30 Potassium 4.1 mEq/L (3.5-5.1) 09/23/18 18:30 Chloride 105 mEq/L (98-107) 09/23/18 18:30 Carbon Dioxide 26.3 mEq/L (21.0-31.0) 09/23/18 18:30 Anion Gap 11.8 (7.0-16.0) 09/23/18 18:30 BUN 13 mg/dL (7-25) 09/23/18 18:30 Creatinine 0.6 mg/dL (0.6-1.2) 09/23/18 18:30 Est GFR ( Amer) > 60.0 ml/min (>90) 09/23/18 18:30 Est GFR (Non-Af Amer) > 60.0 ml/min 09/23/18 18:30 BUN/Creatinine Ratio 21.7 09/23/18 18:30 Glucose 91 mg/dL (70-105) 09/23/18 18:30 Calcium 9.9 mg/dL (8.6-10.3) 09/23/18 18:30 Total Bilirubin 0.4 mg/dL (0.3-1.0) 09/23/18 18:30 AST 12 U/L (13-39) L 09/23/18 18:30 ALT 10 U/L (7-52) 09/23/18 18:30 Alkaline Phosphatase 60 U/L (34-104) 09/23/18 18:30 Troponin I < 0.01 ng/mL (0.01-0.05) L 09/23/18 18:30 Total Protein 6.9 gm/dL (6.0-8.3) 09/23/18 18:30 Albumin 4.5 gm/dL (3.7-5.3) 09/23/18 18:30 Globulin 2.4 gm/dL 09/23/18 18:30 Albumin/Globulin Ratio 1.9 (1.0-1.8) H 09/23/18 18:30 Triglycerides 141 mg/dL (<150) 09/23/18 18:30 Cholesterol 129 mg/dL (<200) 09/23/18 18:30 LDL Cholesterol Direct 83 mg/dL (75-193) 09/23/18 18:30 HDL Cholesterol 32 mg/dL (23-92) 09/23/18 18:30 TSH 1.09 uIU/ml (0.34-5.60) 09/23/18 18:30 Urine Source CLEAN C 09/23/18 19:20 Urine Color YELLOW 09/23/18 19:20 Urine Clarity CLEAR (CLEAR) 09/23/18 19:20 Urine pH 7.0 (4.6 - 8.0) 09/23/18 19:20 Ur Specific [place] <= 1.005 (1.005-1.030) 09/23/18 19:20 Urine Protein NEGATIVE mg/dL (NEGATIVE) 09/23/18 19:20 Urine Glucose (UA) NEGATIVE mg/dL (NEGATIVE) 09/23/18 19:20 Urine Ketones NEGATIVE mg/dL (NEGATIVE) 09/23/18 19:20 Urine Blood NEGATIVE (NEGATIVE) 09/23/18 19:20 Urine Nitrate NEGATIVE (NEGATIVE) 09/23/18 19:20 Urine Bilirubin NEGATIVE (NEGATIVE) 09/23/18 19:20 Urine Urobilinogen 0.2 E.U./dL (0.2 - 1.0) 09/23/18 19:20 Ur Leukocyte Esterase NEGATIVE (NEGATIVE) 09/23/18 19:20 Urine RBC NONE SEEN /hpf (0-5) 09/23/18 19:20 Urine WBC NONE SEEN /hpf (0-5) 09/23/18 19:20 Ur Epithelial Cells RARE /lpf (FEW) 09/23/18 19:20 Urine Bacteria NONE SEEN /hpf (NONE SEEN) 09/23/18 19:20 RPR NONREACTIVE (NONREACTIVE) 09/23/18 18:30 - Physical Exam Vitals and I&O: Vital Signs Temp 97.8 F 10/02/18 06:18 Pulse 87 10/02/18 08:34 Resp 20 10/02/18 06:18 BP 156/66 10/02/18 08:34 Pulse Ox 97 10/02/18 06:18 Intake & Output 10/01/18 10/02/18 10/02/18 18:59 06:59 18:59 Intake Total 900 240 Balance 900 240 Intake: Oral 900 240 Other: # Voids 3 2 # Bowel Movements 1 Active Medications: Current Medications Acetaminophen (Tylenol) 650 mg PO Q4HR PRN PRN Reason: Mild Pain / Temp above 100 Stop: 11/23/18 03:37 Last Admin: 10/01/18 11:20 Dose: 650 mg Al Hydrox/Mg Hydrox/Simethicone (Maalox) 30 ml PO Q6HR PRN PRN Reason: Indigestion Stop: 11/22/18 20:46 Albuterol Sulfate (Albuterol 2.5mg/3ml Neb Ud) 3 mg HHN Q6HR PRN PRN Reason: COPD Exacerbation Stop: 11/22/18 20:34 Amlodipine Besylate (Norvasc) 5 mg PO DAILY [facility] Stop: 11/23/18 08:59 Last Admin: 10/02/18 08:34 Dose: 5 mg Ascorbic Acid (Vitamin C) 500 mg PO DAILY [facility] Stop: 11/23/18 08:59 Last Admin: 10/02/18 08:37 Dose: 500 mg Atorvastatin Calcium (Lipitor) 20 mg PO HS [facility]; Protocol Stop: 11/22/18 20:59 Last Admin: 10/01/18 21:42 Dose: 20 mg Divalproex Sodium (Depakote Dr) 500 mg PO BID [facility]; Protocol Stop: 11/25/18 08:59 Last Admin: 10/02/18 08:36 Dose: 500 mg Docusate Sodium (Colace) 100 mg PO Q12HR [facility] Stop: 11/22/18 20:59 Last Admin: 10/02/18 08:36 Dose: 100 mg Fish Oil ([place] 3) 1,000 mg PO DAILY [facility] Stop: 11/23/18 08:59 Last Admin: 10/02/18 08:36 Dose: 1,000 mg Levothyroxine Sodium (Synthroid) 0.05 mg PO QDAC [facility] Stop: 11/23/18 07:29 Last Admin: 10/02/18 06:51 Dose: 0.05 mg Lidocaine (Lidoderm 5% Patch) 1 patch TD DAILY [facility] Stop: 11/23/18 08:59 Last Admin: 10/02/18 08:05 Dose: 1 patch Lorazepam (Ativan) 0.5 mg PO Q4HR PRN; Protocol PRN Reason: Anxiety Stop: 10/23/18 20:30 Last Admin: 10/02/18 08:40 Dose: 0.5 mg Magnesium Hydroxide (Milk Of Magnesia) 30 ml PO DAILY PRN PRN Reason: Constipation Stop: 11/22/18 20:34 Multivitamins/Vitamin C (Theragran) 1 tab PO DAILY [facility] Stop: 11/23/18 08:59 Last Admin: 10/02/18 08:36 Dose: 1 tab Olanzapine (Zyprexa) 7.5 mg PO BID [facility]; Protocol Stop: 11/29/18 08:59 Last Admin: 10/02/18 08:36 Dose: 7.5 mg Trazodone HCl (Desyrel) 100 mg PO HS [facility]; Protocol Stop: 11/25/18 20:59 Last Admin: 10/01/18 21:42 Dose: 100 mg Zolpidem Tartrate (Ambien) 5 mg PO HS PRN PRN Reason: Insomnia Stop: 11/22/18 20:30 Last Admin: 09/29/18 21:45 Dose: 5 mg Physical Exam: 63 y/o female patient continues to have severe mood swings, agitated and irritable. General: weak, demented, other (child like behavior.) HEENT: NC/AT Neck: Supple Lungs: CTAB Cardiovascular: RRR Abdomen: soft, non-tender Extremities: clear Neurological: no change - Procedures Procedures: Procedures Procedure Code Date COLONOSCOPY AND BIOPSY 44869 07/20/12 EGD BIOPSY SINGLE/MULTIPLE 69570 07/20/12 ENDOSCOPIC BIOPSY OF RECTUM 48.24 07/20/12 ESOPHAGOGASTRODUODENOSCOPY [EGD] W/CLOSED BIOPSY 45.16 07/20/12 OTHER GROUP THERAPY 94.44 09/16/11 Internal Medicine Assmt/Plan - Assessment Assessment: Psychosis. Htn. Hx of Dslipidemia. Thyroid disorder. Arthritis. Asthma. Schizophrenia. Bipolar disorder. Dementia. - Plan Plan: Continuation of care. Monitor Labs. Continue present meds as directed. Monitor vitals, Continue BP meds as directed. Monitor Diet/Nutritional support. Psych management per Psych. Pain Management. Physical therapy. Occupational therapy. Fall precaution, frequent nursing rounds, and as needed restraints to prevent fall. Safety precaution. Supportive care. Continue collaborating with consulting specialists, case management and nursing team. Will Monitor patient and continue present care management. Nutritional Asmnt/Malnutr-PDOC - Dietary Evaluation Malnutrition Findings (Please click <Entered> for more info): Nutritional Asmnt/Malnutrition Start: 07/02/19 12: 24 Text: Status: Complete Freq: Protocol: Document 09/26/18 12:24 KELSEY (Rec: 09/26/18 12:28 KELSEY [email or web address]) Nutritional Asmnt/Malnutrition Patient General Information Nutritional Screening Moderate Risk Diagnosis PSYCHOSIS NOS Pertinent Medical Hx/Surgical Hx HTN, DYSLIPIDEMIA, THYROID DISORDER, ARTHRITIS, ASTHMA, SCHIZOPHRENIA, BIPOLAR DISORDER, DEMENTIA Subjective Information PT IS A 63 YEAR OLD FEMALE ADMITTED D/T AGITATION. HT: 53 WT: 160 LB 12.8 OZ (72.73 KG) ABW: 126 LB. (57.39 KG) BMI: 28.34 (OVERWEIGHT) GI: WNL, SOFT, NON-TENDER BM: NOT NOTED I/O: 1190/NOT NOTED SKIN: WNL, INTACT KWESI: 18 DIET ORDER: PUREED, KLAUDIA ESTIMATED ENERGY NEEDS: ( GERIATRIC, ABW) 8072-9697 KCALS (25-30 KCALS/ KG) 57-69 G PRO (1.0-1.2 G/KG) 3187-9252 ML (25-30 ML/KG) PT PO INTAKE: 75-100% MEALS PER MEAL/NUTRITION ACTIVITY RECORD. DIETARY IS CURRENTLY PROVIDING AN ESTIMATED 2548 KCALS AND 101 GM PRO. PER PT PO INTAKE, THIS IS PROVIDING AN ESTIMATED 2242 KCALS AND 89 GM PRO, TO MEET 100+% KCAL AND 100+% PRO NEEDS. Current Diet Order/ Nutrition Support PUREED, KLAUDIA Pertinent Medications MAALOX (PRN), ALBUTEROL (PRN), VIT C, LIPITOR, COLACE, FISH OIL, SYNTHROID, MOM (PRN), THEREGRAN Pertinent Labs 09/23: AST 12, TRP <0.01 Nutritional Hx/Data Height 1.6 m Height (Calculated Centimeters) 160.0 Current Weight (lbs) 72.575 kg Weight (Calculated Kilograms) 72.6 Weight (Calculated Grams) 21329.8 [place] Body Weight 115 % [place] Body Weight 139 Body Mass Index (BMI) 28.3 Weight Status Overweight GI Symptoms GI Symptoms None Last BM NOT NOTED Skin Integrity/Comment: WNL, INTACT Current %PO Good (75-100%) Estimated Nutritional Goals BEE in Kcals: Adj wt of IBW Calories/Kcals/Kg 25-30 Kcals Calculated 2240-4127 Protein: Adj wt of IBW Protein g/k.0-1.2 Protein Calculated 57-69 Fluid: ml 2009-1056 ML (25-30 ML/KG) Nutritional Problem No current Nutrition Prob Problem NO NUTRITION DIAGNOSIS AT THIS TIME. Etiology N/A Signs/Symptoms: N/A Malnutrition Related to Morbid Obesity Malnutrition related to morbid obesity No Intervention/Recommendation Comments CONTINUE WITH PUREED, KLAUDIA DIET ORDERED. Expected Outcomes/Goals Expected Outcomes/Goals 1. PO INTAKE TO MEET > 75% OF NUTRITIONAL NEEDS. 2. MONITOR PO INTAKE, WT, NUTRITION RELATED LABS AND SKIN INTEGRITY. 3. F/U LOW RISK IN 7 DAYS, 10/03
[2018-10-02] MEDS ORDERED: Haloperidol Lactate 5 mg/mL 1mL Vial IM ONE (16:49)
[2018-10-02] MEDS ORDERED: Haloperidol Lactate 5 mg/mL 1mL Vial ONE (16:58)
--- NOTE | 2018-10-02 20:40 | Progress Notes ---
DATE: 10/02/2018 SUBJECTIVE: The patient poorly oriented, just wants to leave, it is unclear where she is going to go or if any placement has been confirmed. Preoccupied, easily agitated, requiring a lot of prompting, redirection, going to the nursing station quite a bit. The patient intrusive, restless, on edge, some yelling episodes, hard to redirect. PLAN: We will continue to monitor, increase p.r.n. dosing of Ativan, ongoing concerns about her ability to really function at a lower level of care. Also with a recent dose increase of Zyprexa. We will monitor closely. JOB# [id number]
[2018-10-02] MEDS: Atorvastatin Calcium 10 MG TAB PO SCH (20:56)
[2018-10-03] MEDS: Levothyroxine 0.05 Mg Tab PO SCH (06:35)
[2018-10-03] MEDS: Lidocaine 5% Patch TD SCH (09:15)
[2018-10-03] MEDS: Multivitamin Tab PO SCH (09:16)
[2018-10-03] MEDS: Fish Oil 1,000 MG SGL PO SCH (09:16)
--- NOTE | 2018-10-03 14:02 | Internal Medicine Prog Note ---
Internal Medicine Subjective - Subjective Service Date: 10/03/18 Patient seen and examined:: with staff Patient is:: awake, verbal, agitated, confused Patient Complaints of:: other (Hx of Dementia.) Per staff patient has:: no adverse event, no episodes of fall Internal Medicine Objective - Results Result Diagrams: 09/23/18 18:30 09/23/18 18:30 Recent Labs: Laboratory Last Values WBC 14.5 Th/cmm (4.8-10.8) H 09/23/18 18:30 RBC 4.77 Mil/cmm (3.80-5.20) 09/23/18 18:30 Hgb 14.1 gm/dL (12-16) 09/23/18 18:30 Hct 42.1 % (41.0-60) 09/23/18 18:30 MCV 88.2 fl (81-100) 09/23/18 18:30 MCH 29.5 pg (27.0-31.0) 09/23/18 18:30 MCHC Differential 33.5 pg (28.0-36.0) 09/23/18 18:30 RDW 14.2 % (11.5-20.0) 09/23/18 18:30 Plt Count 186 Th/cmm (150-400) 09/23/18 18:30 MPV 9.1 fl 09/23/18 18:30 Add Manual Diff YES 09/23/18 18:30 Band Neutrophils % 0 % (0-10) 09/23/18 18:30 Neutrophils (Manual) 25 % (40-80) L 09/23/18 18:30 Lymphocytes 69 % (20-50) H 09/23/18 18:30 Monocytes 3 % (2-10) 09/23/18 18:30 Eosinophils 3 % (0-5) 09/23/18 18:30 Basophils 0 % (0-3) 09/23/18 18:30 Platelet Estimate ADEQUATE (NORMAL) 09/23/18 18:30 PT 10.1 SECONDS (9.5-11.5) 09/23/18 18:30 INR 0.97 (0.5-1.4) 09/23/18 18:30 PTT (Actin FS) 23.4 SECONDS (26.0-38.0) L 09/23/18 18:30 Sodium 139 mEq/L (136-145) 09/23/18 18:30 Potassium 4.1 mEq/L (3.5-5.1) 09/23/18 18:30 Chloride 105 mEq/L (98-107) 09/23/18 18:30 Carbon Dioxide 26.3 mEq/L (21.0-31.0) 09/23/18 18:30 Anion Gap 11.8 (7.0-16.0) 09/23/18 18:30 BUN 13 mg/dL (7-25) 09/23/18 18:30 Creatinine 0.6 mg/dL (0.6-1.2) 09/23/18 18:30 Est GFR ( Amer) > 60.0 ml/min (>90) 09/23/18 18:30 Est GFR (Non-Af Amer) > 60.0 ml/min 09/23/18 18:30 BUN/Creatinine Ratio 21.7 09/23/18 18:30 Glucose 91 mg/dL (70-105) 09/23/18 18:30 Calcium 9.9 mg/dL (8.6-10.3) 09/23/18 18:30 Total Bilirubin 0.4 mg/dL (0.3-1.0) 09/23/18 18:30 AST 12 U/L (13-39) L 09/23/18 18:30 ALT 10 U/L (7-52) 09/23/18 18:30 Alkaline Phosphatase 60 U/L (34-104) 09/23/18 18:30 Troponin I < 0.01 ng/mL (0.01-0.05) L 09/23/18 18:30 Total Protein 6.9 gm/dL (6.0-8.3) 09/23/18 18:30 Albumin 4.5 gm/dL (3.7-5.3) 09/23/18 18:30 Globulin 2.4 gm/dL 09/23/18 18:30 Albumin/Globulin Ratio 1.9 (1.0-1.8) H 09/23/18 18:30 Triglycerides 141 mg/dL (<150) 09/23/18 18:30 Cholesterol 129 mg/dL (<200) 09/23/18 18:30 LDL Cholesterol Direct 83 mg/dL (75-193) 09/23/18 18:30 HDL Cholesterol 32 mg/dL (23-92) 09/23/18 18:30 TSH 1.09 uIU/ml (0.34-5.60) 09/23/18 18:30 Urine Source CLEAN C 09/23/18 19:20 Urine Color YELLOW 09/23/18 19:20 Urine Clarity CLEAR (CLEAR) 09/23/18 19:20 Urine pH 7.0 (4.6 - 8.0) 09/23/18 19:20 Ur Specific [place] <= 1.005 (1.005-1.030) 09/23/18 19:20 Urine Protein NEGATIVE mg/dL (NEGATIVE) 09/23/18 19:20 Urine Glucose (UA) NEGATIVE mg/dL (NEGATIVE) 09/23/18 19:20 Urine Ketones NEGATIVE mg/dL (NEGATIVE) 09/23/18 19:20 Urine Blood NEGATIVE (NEGATIVE) 09/23/18 19:20 Urine Nitrate NEGATIVE (NEGATIVE) 09/23/18 19:20 Urine Bilirubin NEGATIVE (NEGATIVE) 09/23/18 19:20 Urine Urobilinogen 0.2 E.U./dL (0.2 - 1.0) 09/23/18 19:20 Ur Leukocyte Esterase NEGATIVE (NEGATIVE) 09/23/18 19:20 Urine RBC NONE SEEN /hpf (0-5) 09/23/18 19:20 Urine WBC NONE SEEN /hpf (0-5) 09/23/18 19:20 Ur Epithelial Cells RARE /lpf (FEW) 09/23/18 19:20 Urine Bacteria NONE SEEN /hpf (NONE SEEN) 09/23/18 19:20 RPR NONREACTIVE (NONREACTIVE) 09/23/18 18:30 - Physical Exam Vitals and I&O: Vital Signs Temp 97.0 F 10/03/18 06:14 Pulse 87 10/03/18 09:16 Resp 20 10/03/18 12:23 BP 133/82 10/03/18 09:16 Pulse Ox 96 10/03/18 07:12 Intake & Output 10/02/18 10/03/18 10/03/18 18:59 06:59 18:59 Intake Total 1400 240 Balance 1400 240 Intake: Oral 1400 240 Other: # Voids 4 2 # Bowel Movements 1 Stool Characteristics Formed [place] Active Medications: Current Medications Acetaminophen (Tylenol) 650 mg PO Q4HR PRN PRN Reason: Mild Pain / Temp above 100 Stop: 11/23/18 03:37 Last Admin: 10/01/18 11:20 Dose: 650 mg Al Hydrox/Mg Hydrox/Simethicone (Maalox) 30 ml PO Q6HR PRN PRN Reason: Indigestion Stop: 11/22/18 20:46 Albuterol Sulfate (Albuterol 2.5mg/3ml Neb Ud) 3 mg HHN Q6HR PRN PRN Reason: COPD Exacerbation Stop: 11/22/18 20:34 Amlodipine Besylate (Norvasc) 5 mg PO DAILY [facility] Stop: 11/23/18 08:59 Last Admin: 10/03/18 09:16 Dose: 5 mg Ascorbic Acid (Vitamin C) 500 mg PO DAILY [facility] Stop: 11/23/18 08:59 Last Admin: 10/03/18 09:16 Dose: 500 mg Atorvastatin Calcium (Lipitor) 20 mg PO HS [facility]; Protocol Stop: 11/22/18 20:59 Last Admin: 10/02/18 20:56 Dose: 20 mg Divalproex Sodium (Depakote Dr) 500 mg PO BID [facility]; Protocol Stop: 11/25/18 08:59 Last Admin: 10/03/18 09:16 Dose: 500 mg Docusate Sodium (Colace) 100 mg PO Q12HR [facility] Stop: 11/22/18 20:59 Last Admin: 10/03/18 09:16 Dose: 100 mg Fish Oil ([place] 3) 1,000 mg PO DAILY [facility] Stop: 11/23/18 08:59 Last Admin: 10/03/18 09:16 Dose: 1,000 mg Levothyroxine Sodium (Synthroid) 0.05 mg PO QDAC [facility] Stop: 11/23/18 07:29 Last Admin: 10/03/18 06:35 Dose: 0.05 mg Lidocaine (Lidoderm 5% Patch) 1 patch TD DAILY [facility] Stop: 11/23/18 08:59 Last Admin: 10/03/18 09:15 Dose: 1 patch Lorazepam (Ativan) 1 mg PO Q4HR PRN; Protocol PRN Reason: Anxiety Stop: 10/23/18 20:30 Last Admin: 10/03/18 09:16 Dose: 1 mg Magnesium Hydroxide (Milk Of Magnesia) 30 ml PO DAILY PRN PRN Reason: Constipation Stop: 11/22/18 20:34 Multivitamins/Vitamin C (Theragran) 1 tab PO DAILY [facility] Stop: 11/23/18 08:59 Last Admin: 10/03/18 09:16 Dose: 1 tab Olanzapine (Zyprexa) 10 mg PO BID [facility]; Protocol Stop: 12/02/18 16:59 Trazodone HCl (Desyrel) 100 mg PO HS [facility]; Protocol Stop: 11/25/18 20:59 Last Admin: 10/02/18 20:56 Dose: 100 mg Zolpidem Tartrate (Ambien) 5 mg PO HS PRN PRN Reason: Insomnia Stop: 11/22/18 20:30 Last Admin: 09/29/18 21:45 Dose: 5 mg Physical Exam: 63 y/o female patient continues to be agitated and irritable, stating she wants to leave. General: weak, demented, other (child like behavior.) HEENT: NC/AT Neck: Supple Lungs: CTAB Cardiovascular: RRR Abdomen: soft, non-tender Extremities: clear Neurological: no change - Procedures Procedures: Procedures Procedure Code Date COLONOSCOPY AND BIOPSY 77216 07/20/12 EGD BIOPSY SINGLE/MULTIPLE 53206 07/20/12 ENDOSCOPIC BIOPSY OF RECTUM 48.24 07/20/12 ESOPHAGOGASTRODUODENOSCOPY [EGD] W/CLOSED BIOPSY 45.16 07/20/12 OTHER GROUP THERAPY 94.44 09/16/11 Internal Medicine Assmt/Plan - Assessment Assessment: Psychosis. Htn. Hx of Dslipidemia. Thyroid disorder. Arthritis. Asthma. Schizophrenia. Bipolar disorder. Dementia. - Plan Plan: Continuation of care. Monitor Labs. Continue present meds as directed. Monitor vitals, Continue BP meds as directed. Monitor Diet/Nutritional support. Psych management per Psych. Pain Management. Physical therapy. Occupational therapy. Fall precaution, frequent nursing rounds, and as needed restraints to prevent fall. Safety precaution. Supportive care. Continue collaborating with consulting specialists, case management and nursing team. Will Monitor patient and continue present care management. Nutritional Asmnt/Malnutr-PDOC - Dietary Evaluation Malnutrition Findings (Please click <Entered> for more info): Nutritional Asmnt/Malnutrition Start: 09/26/18 12: 24 Text: Status: Complete Freq: Protocol: Document 09/26/18 12:24 KELSEY (Rec: 09/26/18 12:28 KELSEY [email or web address]) Nutritional Asmnt/Malnutrition Patient General Information Nutritional Screening Moderate Risk Diagnosis PSYCHOSIS NOS Pertinent Medical Hx/Surgical Hx HTN, DYSLIPIDEMIA, THYROID DISORDER, ARTHRITIS, ASTHMA, SCHIZOPHRENIA, BIPOLAR DISORDER, DEMENTIA Subjective Information PT IS A 63 YEAR OLD FEMALE ADMITTED D/T AGITATION. HT: 53 WT: 160 LB 12.8 OZ (72.73 KG) ABW: 126 LB. (57.39 KG) BMI: 28.34 (OVERWEIGHT) GI: WNL, SOFT, NON-TENDER BM: NOT NOTED I/O: 1190/NOT NOTED SKIN: WNL, INTACT KWESI: 18 DIET ORDER: PUREED, KLAUDIA ESTIMATED ENERGY NEEDS: ( GERIATRIC, ABW) 5355-6941 KCALS (25-30 KCALS/ KG) 57-69 G PRO (1.0-1.2 G/KG) 0379-7455 ML (25-30 ML/KG) PT PO INTAKE: 75-100% MEALS PER MEAL/NUTRITION ACTIVITY RECORD. DIETARY IS CURRENTLY PROVIDING AN ESTIMATED 2548 KCALS AND 101 GM PRO. PER PT PO INTAKE, THIS IS PROVIDING AN ESTIMATED 2242 KCALS AND 89 GM PRO, TO MEET 100+% KCAL AND 100+% PRO NEEDS. Current Diet Order/ Nutrition Support PUREED, KLAUDIA Pertinent Medications MAALOX (PRN), ALBUTEROL (PRN), VIT C, LIPITOR, COLACE, FISH OIL, SYNTHROID, MOM (PRN), THEREGRAN Pertinent Labs 09/23: AST 12, TRP <0.01 Nutritional Hx/Data Height 1.6 m Height (Calculated Centimeters) 160.0 Current Weight (lbs) 72.575 kg Weight (Calculated Kilograms) 72.6 Weight (Calculated Grams) 53121.8 [place] Body Weight 115 % [place] Body Weight 139 Body Mass Index (BMI) 28.3 Weight Status Overweight GI Symptoms GI Symptoms None Last BM NOT NOTED Skin Integrity/Comment: WNL, INTACT Current %PO Good (75-100%) Estimated Nutritional Goals BEE in Kcals: Adj wt of IBW Calories/Kcals/Kg 25-30 Kcals Calculated 1751-5850 Protein: Adj wt of IBW Protein g/k.0-1.2 Protein Calculated 57-69 Fluid: ml 8512-7385 ML (25-30 ML/KG) Nutritional Problem No current Nutrition Prob Problem NO NUTRITION DIAGNOSIS AT THIS TIME. Etiology N/A Signs/Symptoms: N/A Malnutrition Related to Morbid Obesity Malnutrition related to morbid obesity No Intervention/Recommendation Comments CONTINUE WITH PUREED, KLAUDIA DIET ORDERED. Expected Outcomes/Goals Expected Outcomes/Goals 1. PO INTAKE TO MEET > 75% OF NUTRITIONAL NEEDS. 2. MONITOR PO INTAKE, WT, NUTRITION RELATED LABS AND SKIN INTEGRITY. 3. F/U LOW RISK IN 7 DAYS, 10/03
[2018-10-03] MEDS: Atorvastatin Calcium 10 MG TAB PO SCH (20:38)
--- NOTE | 2018-10-04 03:30 | Progress Notes ---
DATE: 10/03/2018 SUBJECTIVE: The patient with a lot of behavioral disturbances yesterday, angry, upset, is requiring a lot of staff prompting, redirection, Haldol cocktail for agitation, screaming, yelling could not be redirected by staff. The patient states she is leaving today. She signed the discharge paperwork, very preoccupied, confused, disoriented, not making much sense, very impulsive, highly unpredictable. PLAN: We will continue to monitor. I will be increasing her dosage of Zyprexa today. JOB# [id number]
[2018-10-04] MEDS: Levothyroxine 0.05 Mg Tab PO SCH (06:38)
[2018-10-04] MEDS: Fish Oil 1,000 MG SGL PO SCH (09:17)
[2018-10-04] MEDS: Lidocaine 5% Patch TD SCH (09:18)
[2018-10-04] MEDS: Multivitamin Tab PO SCH (09:18)
--- NOTE | 2018-10-04 12:11 | Internal Medicine Prog Note ---
Internal Medicine Subjective - Subjective Service Date: 10/04/18 Patient seen and examined:: with staff Patient is:: awake, verbal, agitated, confused Patient Complaints of:: other (Hx of Dementia.) Per staff patient has:: no adverse event, no episodes of fall Internal Medicine Objective - Results Result Diagrams: 09/23/18 18:30 09/23/18 18:30 Recent Labs: Laboratory Last Values WBC 14.5 Th/cmm (4.8-10.8) H 09/23/18 18:30 RBC 4.77 Mil/cmm (3.80-5.20) 09/23/18 18:30 Hgb 14.1 gm/dL (12-16) 09/23/18 18:30 Hct 42.1 % (41.0-60) 09/23/18 18:30 MCV 88.2 fl (81-100) 09/23/18 18:30 MCH 29.5 pg (27.0-31.0) 09/23/18 18:30 MCHC Differential 33.5 pg (28.0-36.0) 09/23/18 18:30 RDW 14.2 % (11.5-20.0) 09/23/18 18:30 Plt Count 186 Th/cmm (150-400) 09/23/18 18:30 MPV 9.1 fl 09/23/18 18:30 Add Manual Diff YES 09/23/18 18:30 Band Neutrophils % 0 % (0-10) 09/23/18 18:30 Neutrophils (Manual) 25 % (40-80) L 09/23/18 18:30 Lymphocytes 69 % (20-50) H 09/23/18 18:30 Monocytes 3 % (2-10) 09/23/18 18:30 Eosinophils 3 % (0-5) 09/23/18 18:30 Basophils 0 % (0-3) 09/23/18 18:30 Platelet Estimate ADEQUATE (NORMAL) 09/23/18 18:30 PT 10.1 SECONDS (9.5-11.5) 09/23/18 18:30 INR 0.97 (0.5-1.4) 09/23/18 18:30 PTT (Actin FS) 23.4 SECONDS (26.0-38.0) L 09/23/18 18:30 Sodium 139 mEq/L (136-145) 09/23/18 18:30 Potassium 4.1 mEq/L (3.5-5.1) 09/23/18 18:30 Chloride 105 mEq/L (98-107) 09/23/18 18:30 Carbon Dioxide 26.3 mEq/L (21.0-31.0) 09/23/18 18:30 Anion Gap 11.8 (7.0-16.0) 09/23/18 18:30 BUN 13 mg/dL (7-25) 09/23/18 18:30 Creatinine 0.6 mg/dL (0.6-1.2) 09/23/18 18:30 Est GFR ( Amer) > 60.0 ml/min (>90) 09/23/18 18:30 Est GFR (Non-Af Amer) > 60.0 ml/min 09/23/18 18:30 BUN/Creatinine Ratio 21.7 09/23/18 18:30 Glucose 91 mg/dL (70-105) 09/23/18 18:30 Calcium 9.9 mg/dL (8.6-10.3) 09/23/18 18:30 Total Bilirubin 0.4 mg/dL (0.3-1.0) 09/23/18 18:30 AST 12 U/L (13-39) L 09/23/18 18:30 ALT 10 U/L (7-52) 09/23/18 18:30 Alkaline Phosphatase 60 U/L (34-104) 09/23/18 18:30 Troponin I < 0.01 ng/mL (0.01-0.05) L 09/23/18 18:30 Total Protein 6.9 gm/dL (6.0-8.3) 09/23/18 18:30 Albumin 4.5 gm/dL (3.7-5.3) 09/23/18 18:30 Globulin 2.4 gm/dL 09/23/18 18:30 Albumin/Globulin Ratio 1.9 (1.0-1.8) H 09/23/18 18:30 Triglycerides 141 mg/dL (<150) 09/23/18 18:30 Cholesterol 129 mg/dL (<200) 09/23/18 18:30 LDL Cholesterol Direct 83 mg/dL (75-193) 09/23/18 18:30 HDL Cholesterol 32 mg/dL (23-92) 09/23/18 18:30 TSH 1.09 uIU/ml (0.34-5.60) 09/23/18 18:30 Urine Source CLEAN C 09/23/18 19:20 Urine Color YELLOW 09/23/18 19:20 Urine Clarity CLEAR (CLEAR) 09/23/18 19:20 Urine pH 7.0 (4.6 - 8.0) 09/23/18 19:20 Ur Specific [place] <= 1.005 (1.005-1.030) 09/23/18 19:20 Urine Protein NEGATIVE mg/dL (NEGATIVE) 09/23/18 19:20 Urine Glucose (UA) NEGATIVE mg/dL (NEGATIVE) 09/23/18 19:20 Urine Ketones NEGATIVE mg/dL (NEGATIVE) 09/23/18 19:20 Urine Blood NEGATIVE (NEGATIVE) 09/23/18 19:20 Urine Nitrate NEGATIVE (NEGATIVE) 09/23/18 19:20 Urine Bilirubin NEGATIVE (NEGATIVE) 09/23/18 19:20 Urine Urobilinogen 0.2 E.U./dL (0.2 - 1.0) 09/23/18 19:20 Ur Leukocyte Esterase NEGATIVE (NEGATIVE) 09/23/18 19:20 Urine RBC NONE SEEN /hpf (0-5) 09/23/18 19:20 Urine WBC NONE SEEN /hpf (0-5) 09/23/18 19:20 Ur Epithelial Cells RARE /lpf (FEW) 09/23/18 19:20 Urine Bacteria NONE SEEN /hpf (NONE SEEN) 09/23/18 19:20 RPR NONREACTIVE (NONREACTIVE) 09/23/18 18:30 - Physical Exam Vitals and I&O: Vital Signs Temp 97.4 F 10/04/18 06:36 Pulse 83 10/04/18 09:16 Resp 19 10/04/18 08:00 BP 120/74 10/04/18 09:16 Pulse Ox 96 10/04/18 06:50 Intake & Output 10/03/18 10/04/18 10/04/18 18:59 06:59 18:59 Intake Total 1175 120 Balance 1175 120 Intake: Oral 1175 120 Other: # Voids 1 # Bowel Movements 0 Stool Characteristics Formed Formed Brown Brown Active Medications: Current Medications Acetaminophen (Tylenol) 650 mg PO Q4HR PRN PRN Reason: Mild Pain / Temp above 100 Stop: 11/23/18 03:37 Last Admin: 10/01/18 11:20 Dose: 650 mg Al Hydrox/Mg Hydrox/Simethicone (Maalox) 30 ml PO Q6HR PRN PRN Reason: Indigestion Stop: 11/22/18 20:46 Albuterol Sulfate (Albuterol 2.5mg/3ml Neb Ud) 3 mg HHN Q6HR PRN PRN Reason: COPD Exacerbation Stop: 11/22/18 20:34 Amlodipine Besylate (Norvasc) 5 mg PO DAILY MAISHA Stop: 11/23/18 08:59 Last Admin: 10/04/18 09:16 Dose: 5 mg Ascorbic Acid (Vitamin C) 500 mg PO DAILY MAISHA Stop: 11/23/18 08:59 Last Admin: 10/04/18 09:16 Dose: 500 mg Atorvastatin Calcium (Lipitor) 20 mg PO HS MAISHA; Protocol Stop: 11/22/18 20:59 Last Admin: 10/03/18 20:38 Dose: 20 mg Divalproex Sodium (Depakote Dr) 500 mg PO BID MAISHA; Protocol Stop: 11/25/18 08:59 Last Admin: 10/04/18 09:15 Dose: 500 mg Docusate Sodium (Colace) 100 mg PO Q12HR MAISHA Stop: 11/22/18 20:59 Last Admin: 10/04/18 09:16 Dose: 100 mg Fish Oil ([place] 3) 1,000 mg PO DAILY MAISHA Stop: 11/23/18 08:59 Last Admin: 10/04/18 09:17 Dose: 1,000 mg Levothyroxine Sodium (Synthroid) 0.05 mg PO QDAC MAISHA Stop: 11/23/18 07:29 Last Admin: 10/04/18 06:38 Dose: 0.05 mg Lidocaine (Lidoderm 5% Patch) 1 patch TD DAILY MAISHA Stop: 11/23/18 08:59 Last Admin: 10/04/18 09:18 Dose: 1 patch Lorazepam (Ativan) 1 mg PO Q4HR PRN; Protocol PRN Reason: Anxiety Stop: 10/23/18 20:30 Last Admin: 10/03/18 20:38 Dose: 1 mg Magnesium Hydroxide (Milk Of Magnesia) 30 ml PO DAILY PRN PRN Reason: Constipation Stop: 11/22/18 20:34 Multivitamins/Vitamin C (Theragran) 1 tab PO DAILY MAISHA Stop: 11/23/18 08:59 Last Admin: 10/04/18 09:18 Dose: 1 tab Olanzapine (Zyprexa) 10 mg PO BID MAISHA; Protocol Stop: 12/02/18 16:59 Last Admin: 10/04/18 09:16 Dose: 10 mg Trazodone HCl (Desyrel) 100 mg PO HS MAISHA; Protocol Stop: 11/25/18 20:59 Last Admin: 10/03/18 20:38 Dose: 100 mg Zolpidem Tartrate (Ambien) 5 mg PO HS PRN PRN Reason: Insomnia Stop: 11/22/18 20:30 Last Admin: 09/29/18 21:45 Dose: 5 mg Physical Exam: 63 y/o female patient is in irritable mood, still stating she wants to leave. General: weak, demented, other (child like behavior.) HEENT: NC/AT Neck: Supple Lungs: CTAB Cardiovascular: RRR Abdomen: soft, non-tender Extremities: clear Neurological: no change - Procedures Procedures: Procedures Procedure Code Date COLONOSCOPY AND BIOPSY 58120 07/20/12 EGD BIOPSY SINGLE/MULTIPLE 17220 07/20/12 ENDOSCOPIC BIOPSY OF RECTUM 48.24 07/20/12 ESOPHAGOGASTRODUODENOSCOPY [EGD] W/CLOSED BIOPSY 45.16 07/20/12 OTHER GROUP THERAPY 94.44 09/16/11 Internal Medicine Assmt/Plan - Assessment Assessment: Psychosis. Htn. Hx of Dslipidemia. Thyroid disorder. Arthritis. Asthma. Schizophrenia. Bipolar disorder. Dementia. - Plan Plan: Continuation of care. Monitor Labs. Continue present meds as directed. Monitor vitals, Continue BP meds as directed. Monitor Diet/Nutritional support. Psych management per Psych. Pain Management. Physical therapy. Occupational therapy. Fall precaution, frequent nursing rounds, and as needed restraints to prevent fall. Safety precaution. Supportive care. Continue collaborating with consulting specialists, case management and nursing team. Will Monitor patient and continue present care management. Nutritional Asmnt/Malnutr-PDOC - Dietary Evaluation Malnutrition Findings (Please click <Entered> for more info): Nutritional Asmnt/Malnutrition Start: 09/26/18 12: 24 Text: Status: Complete Freq: Protocol: Document 09/26/18 12:24 KELSEY (Rec: 09/26/18 12:28 KELSEY [email or web address]) Nutritional Asmnt/Malnutrition Patient General Information Nutritional Screening Moderate Risk Diagnosis PSYCHOSIS NOS Pertinent Medical Hx/Surgical Hx HTN, DYSLIPIDEMIA, THYROID DISORDER, ARTHRITIS, ASTHMA, SCHIZOPHRENIA, BIPOLAR DISORDER, DEMENTIA Subjective Information PT IS A 63 YEAR OLD FEMALE ADMITTED D/T AGITATION. HT: 53 WT: 160 LB 12.8 OZ (72.73 KG) ABW: 126 LB. (57.39 KG) BMI: 28.34 (OVERWEIGHT) GI: WNL, SOFT, NON-TENDER BM: NOT NOTED I/O: 1190/NOT NOTED SKIN: WNL, INTACT KWESI: 18 DIET ORDER: PUREED, KLAUDIA ESTIMATED ENERGY NEEDS: ( GERIATRIC, ABW) 2446-6179 KCALS (25-30 KCALS/ KG) 57-69 G PRO (1.0-1.2 G/KG) 0783-9541 ML (25-30 ML/KG) PT PO INTAKE: 75-100% MEALS PER MEAL/NUTRITION ACTIVITY RECORD. DIETARY IS CURRENTLY PROVIDING AN ESTIMATED 2548 KCALS AND 101 GM PRO. PER PT PO INTAKE, THIS IS PROVIDING AN ESTIMATED 2242 KCALS AND 89 GM PRO, TO MEET 100+% KCAL AND 100+% PRO NEEDS. Current Diet Order/ Nutrition Support PUREED, KLAUDIA Pertinent Medications MAALOX (PRN), ALBUTEROL (PRN), VIT C, LIPITOR, COLACE, FISH OIL, SYNTHROID, MOM (PRN), THEREGRAN Pertinent Labs 09/23: AST 12, TRP <0.01 Nutritional Hx/Data Height 1.6 m Height (Calculated Centimeters) 160.0 Current Weight (lbs) 72.575 kg Weight (Calculated Kilograms) 72.6 Weight (Calculated Grams) 62046.8 [place] Body Weight 115 % [place] Body Weight 139 Body Mass Index (BMI) 28.3 Weight Status Overweight GI Symptoms GI Symptoms None Last BM NOT NOTED Skin Integrity/Comment: WNL, INTACT Current %PO Good (75-100%) Estimated Nutritional Goals BEE in Kcals: Adj wt of IBW Calories/Kcals/Kg 25-30 Kcals Calculated 3022-5068 Protein: Adj wt of IBW Protein g/k.0-1.2 Protein Calculated 57-69 Fluid: ml 6079-1333 ML (25-30 ML/KG) Nutritional Problem No current Nutrition Prob Problem NO NUTRITION DIAGNOSIS AT THIS TIME. Etiology N/A Signs/Symptoms: N/A Malnutrition Related to Morbid Obesity Malnutrition related to morbid obesity No Intervention/Recommendation Comments CONTINUE WITH PUREED, KLAUDIA DIET ORDERED. Expected Outcomes/Goals Expected Outcomes/Goals 1. PO INTAKE TO MEET > 75% OF NUTRITIONAL NEEDS. 2. MONITOR PO INTAKE, WT, NUTRITION RELATED LABS AND SKIN INTEGRITY. 3. F/U LOW RISK IN 7 DAYS, 10/03
--- NOTE | 2018-10-04 13:36 | Progress Notes ---
DATE: 09/25/2018 DATE OF SERVICE: 09/25/2018 SUBJECTIVE: Chart was reviewed and the patient interviewed. Also discussed the patient's condition with the staff and reviewed records and labs. The patient continued to be paranoid and delusional. The patient also is forgetful. She is also confused and wandering around the unit and entering other patients' rooms. The patient also still has difficulty following any of staff directions. Otherwise, the patient is compliant with taking her medications with no side effect of medications. ASSESSMENT: The patient is still agitated and paranoid. TREATMENT PLAN: We will continue to monitor her behavior and her condition closely. Also, continue to work on her agitation and irritability and continue adjusting psychotropic medications. [facility]# [id number]
[2018-10-04] MEDS: Atorvastatin Calcium 10 MG TAB PO SCH (20:39)
--- NOTE | 2018-10-05 00:05 | Progress Notes ---
DATE: SUBJECTIVE: Chart was reviewed and the patient interviewed. Also discussed the patient's condition with the staff and reviewed records and labs. The patient's affect is slightly brighter, but the patient is still easily agitated and needs redirections. The patient also is still pacing up and down the unit, but less than before. She still has mood swings. Otherwise, the patient is compliant with taking medications with no side effects. ASSESSMENT: The patient is still confused, but showing some improvement. TREATMENT PLAN: Continue monitoring her behavior and continue adjusting psychotropic medications and followup. JOB# [id number]
[2018-10-05] MEDS: Levothyroxine 0.05 Mg Tab PO SCH (06:29)
[2018-10-05] MEDS: Lidocaine 5% Patch TD SCH (08:39)
[2018-10-05] MEDS: Multivitamin Tab PO SCH (08:41)
[2018-10-05] MEDS: Fish Oil 1,000 MG SGL PO SCH (08:41)
--- NOTE | 2018-10-05 13:01 | Internal Medicine Prog Note ---
Internal Medicine Subjective - Subjective Service Date: 10/05/18 Patient is:: awake, verbal, agitated, confused Patient Complaints of:: other (Hx of Dementia.) Per staff patient has:: no adverse event, no episodes of fall Internal Medicine Objective - Results Result Diagrams: 09/23/18 18:30 09/23/18 18:30 Recent Labs: Laboratory Last Values WBC 14.5 Th/cmm (4.8-10.8) H 09/23/18 18:30 RBC 4.77 Mil/cmm (3.80-5.20) 09/23/18 18:30 Hgb 14.1 gm/dL (12-16) 09/23/18 18:30 Hct 42.1 % (41.0-60) 09/23/18 18:30 MCV 88.2 fl (81-100) 09/23/18 18:30 MCH 29.5 pg (27.0-31.0) 09/23/18 18:30 MCHC Differential 33.5 pg (28.0-36.0) 09/23/18 18:30 RDW 14.2 % (11.5-20.0) 09/23/18 18:30 Plt Count 186 Th/cmm (150-400) 09/23/18 18:30 MPV 9.1 fl 09/23/18 18:30 Add Manual Diff YES 09/23/18 18:30 Band Neutrophils % 0 % (0-10) 09/23/18 18:30 Neutrophils (Manual) 25 % (40-80) L 09/23/18 18:30 Lymphocytes 69 % (20-50) H 09/23/18 18:30 Monocytes 3 % (2-10) 09/23/18 18:30 Eosinophils 3 % (0-5) 09/23/18 18:30 Basophils 0 % (0-3) 09/23/18 18:30 Platelet Estimate ADEQUATE (NORMAL) 09/23/18 18:30 PT 10.1 SECONDS (9.5-11.5) 09/23/18 18:30 INR 0.97 (0.5-1.4) 09/23/18 18:30 PTT (Actin FS) 23.4 SECONDS (26.0-38.0) L 09/23/18 18:30 Sodium 139 mEq/L (136-145) 09/23/18 18:30 Potassium 4.1 mEq/L (3.5-5.1) 09/23/18 18:30 Chloride 105 mEq/L (98-107) 09/23/18 18:30 Carbon Dioxide 26.3 mEq/L (21.0-31.0) 09/23/18 18:30 Anion Gap 11.8 (7.0-16.0) 09/23/18 18:30 BUN 13 mg/dL (7-25) 09/23/18 18:30 Creatinine 0.6 mg/dL (0.6-1.2) 09/23/18 18:30 Est GFR ( Amer) > 60.0 ml/min (>90) 09/23/18 18:30 Est GFR (Non-Af Amer) > 60.0 ml/min 09/23/18 18:30 BUN/Creatinine Ratio 21.7 09/23/18 18:30 Glucose 91 mg/dL (70-105) 09/23/18 18:30 Calcium 9.9 mg/dL (8.6-10.3) 09/23/18 18:30 Total Bilirubin 0.4 mg/dL (0.3-1.0) 09/23/18 18:30 AST 12 U/L (13-39) L 09/23/18 18:30 ALT 10 U/L (7-52) 09/23/18 18:30 Alkaline Phosphatase 60 U/L (34-104) 09/23/18 18:30 Troponin I < 0.01 ng/mL (0.01-0.05) L 09/23/18 18:30 Total Protein 6.9 gm/dL (6.0-8.3) 09/23/18 18:30 Albumin 4.5 gm/dL (3.7-5.3) 09/23/18 18:30 Globulin 2.4 gm/dL 09/23/18 18:30 Albumin/Globulin Ratio 1.9 (1.0-1.8) H 09/23/18 18:30 Triglycerides 141 mg/dL (<150) 09/23/18 18:30 Cholesterol 129 mg/dL (<200) 09/23/18 18:30 LDL Cholesterol Direct 83 mg/dL (75-193) 09/23/18 18:30 HDL Cholesterol 32 mg/dL (23-92) 09/23/18 18:30 TSH 1.09 uIU/ml (0.34-5.60) 09/23/18 18:30 Urine Source CLEAN C 09/23/18 19:20 Urine Color YELLOW 09/23/18 19:20 Urine Clarity CLEAR (CLEAR) 09/23/18 19:20 Urine pH 7.0 (4.6 - 8.0) 09/23/18 19:20 Ur Specific [place] <= 1.005 (1.005-1.030) 09/23/18 19:20 Urine Protein NEGATIVE mg/dL (NEGATIVE) 09/23/18 19:20 Urine Glucose (UA) NEGATIVE mg/dL (NEGATIVE) 09/23/18 19:20 Urine Ketones NEGATIVE mg/dL (NEGATIVE) 09/23/18 19:20 Urine Blood NEGATIVE (NEGATIVE) 09/23/18 19:20 Urine Nitrate NEGATIVE (NEGATIVE) 09/23/18 19:20 Urine Bilirubin NEGATIVE (NEGATIVE) 09/23/18 19:20 Urine Urobilinogen 0.2 E.U./dL (0.2 - 1.0) 09/23/18 19:20 Ur Leukocyte Esterase NEGATIVE (NEGATIVE) 09/23/18 19:20 Urine RBC NONE SEEN /hpf (0-5) 09/23/18 19:20 Urine WBC NONE SEEN /hpf (0-5) 09/23/18 19:20 Ur Epithelial Cells RARE /lpf (FEW) 09/23/18 19:20 Urine Bacteria NONE SEEN /hpf (NONE SEEN) 09/23/18 19:20 RPR NONREACTIVE (NONREACTIVE) 09/23/18 18:30 - Physical Exam Vitals and I&O: Vital Signs Temp 97 F 10/05/18 06:34 Pulse 83 10/05/18 08:41 Resp 18 10/05/18 08:00 BP 109/64 10/05/18 08:41 Pulse Ox 96 10/05/18 07:37 Intake & Output 10/04/18 10/05/18 10/05/18 18:59 06:59 18:59 Intake Total 900 120 Balance 900 120 Intake: Oral 900 120 Other: # Voids 3 3 # Bowel Movements 1 Stool Characteristics Formed Active Medications: Current Medications Acetaminophen (Tylenol) 650 mg PO Q4HR PRN PRN Reason: Mild Pain / Temp above 100 Stop: 11/23/18 03:37 Last Admin: 10/05/18 06:06 Dose: 650 mg Al Hydrox/Mg Hydrox/Simethicone (Maalox) 30 ml PO Q6HR PRN PRN Reason: Indigestion Stop: 11/22/18 20:46 Albuterol Sulfate (Albuterol 2.5mg/3ml Neb Ud) 3 mg HHN Q6HR PRN PRN Reason: COPD Exacerbation Stop: 11/22/18 20:34 Amlodipine Besylate (Norvasc) 5 mg PO DAILY MAISHA Stop: 11/23/18 08:59 Last Admin: 10/05/18 08:41 Dose: Not Given Ascorbic Acid (Vitamin C) 500 mg PO DAILY [facility] Stop: 11/23/18 08:59 Last Admin: 10/05/18 08:40 Dose: 500 mg Atorvastatin Calcium (Lipitor) 20 mg PO HS [facility]; Protocol Stop: 11/22/18 20:59 Last Admin: 10/04/18 20:39 Dose: 20 mg Divalproex Sodium (Depakote Dr) 500 mg PO BID MAISHA; Protocol Stop: 11/25/18 08:59 Last Admin: 10/05/18 08:39 Dose: 500 mg Docusate Sodium (Colace) 100 mg PO Q12HR MAISHA Stop: 11/22/18 20:59 Last Admin: 10/05/18 08:39 Dose: 100 mg Fish Oil ([place] 3) 1,000 mg PO DAILY MAISHA Stop: 11/23/18 08:59 Last Admin: 10/05/18 08:41 Dose: 1,000 mg Levothyroxine Sodium (Synthroid) 0.05 mg PO QDAC MAISHA Stop: 11/23/18 07:29 Last Admin: 10/05/18 06:29 Dose: 0.05 mg Lidocaine (Lidoderm 5% Patch) 1 patch TD DAILY MAISHA Stop: 11/23/18 08:59 Last Admin: 10/05/18 08:39 Dose: 1 patch Lorazepam (Ativan) 1 mg PO Q4HR PRN; Protocol PRN Reason: Anxiety Stop: 10/23/18 20:30 Last Admin: 10/04/18 20:38 Dose: 1 mg Magnesium Hydroxide (Milk Of Magnesia) 30 ml PO DAILY PRN PRN Reason: Constipation Stop: 11/22/18 20:34 Multivitamins/Vitamin C (Theragran) 1 tab PO DAILY MAISHA Stop: 11/23/18 08:59 Last Admin: 10/05/18 08:41 Dose: 1 tab Olanzapine (Zyprexa) 10 mg PO BID MAISHA; Protocol Stop: 12/02/18 16:59 Last Admin: 10/05/18 08:40 Dose: 10 mg Trazodone HCl (Desyrel) 100 mg PO HS MAISHA; Protocol Stop: 11/25/18 20:59 Last Admin: 10/04/18 20:39 Dose: 100 mg Zolpidem Tartrate (Ambien) 5 mg PO HS PRN PRN Reason: Insomnia Stop: 11/22/18 20:30 Last Admin: 10/04/18 21:02 Dose: 5 mg General: weak, demented, other (child like behavior.) HEENT: NC/AT Neck: Supple Lungs: CTAB Cardiovascular: RRR Abdomen: soft, non-tender Extremities: clear Neurological: no change - Procedures Procedures: Procedures Procedure Code Date COLONOSCOPY AND BIOPSY 20344 07/20/12 EGD BIOPSY SINGLE/MULTIPLE 43588 07/20/12 ENDOSCOPIC BIOPSY OF RECTUM 48.24 07/20/12 ESOPHAGOGASTRODUODENOSCOPY [EGD] W/CLOSED BIOPSY 45.16 07/20/12 OTHER GROUP THERAPY 94.44 09/16/11 Internal Medicine Assmt/Plan - Assessment Assessment: Psychosis. Htn. Hx of Dslipidemia. Thyroid disorder. Arthritis. Asthma. Schizophrenia. Bipolar disorder. Dementia. - Plan Plan: Continuation of care. Monitor Labs. Continue present meds as directed. Monitor vitals, Continue BP meds as directed. Monitor Diet/Nutritional support. Psych management per Psych. Pain Management. Physical therapy. Occupational therapy. Fall precaution, frequent nursing rounds, and as needed restraints to prevent fall. Safety precaution. Supportive care. Continue collaborating with consulting specialists, case management and nursing team. Will Monitor patient and continue present care management. Nutritional Asmnt/Malnutr-PDOC - Dietary Evaluation Malnutrition Findings (Please click <Entered> for more info): Nutritional Asmnt/Malnutrition Start: 09/26/18 12: 24 Text: Status: Complete Freq: Protocol: Document 09/26/18 12:24 KELSEY (Rec: 09/26/18 12:28 KELSEY [email or web address]) Nutritional Asmnt/Malnutrition Patient General Information Nutritional Screening Moderate Risk Diagnosis PSYCHOSIS NOS Pertinent Medical Hx/Surgical Hx HTN, DYSLIPIDEMIA, THYROID DISORDER, ARTHRITIS, ASTHMA, SCHIZOPHRENIA, BIPOLAR DISORDER, DEMENTIA Subjective Information PT IS A 63 YEAR OLD FEMALE ADMITTED D/T AGITATION. HT: 53 WT: 160 LB 12.8 OZ (72.73 KG) ABW: 126 LB. (57.39 KG) BMI: 28.34 (OVERWEIGHT) GI: WNL, SOFT, NON-TENDER BM: NOT NOTED I/O: 1190/NOT NOTED SKIN: WNL, INTACT KWESI: 18 DIET ORDER: PUREED, KLAUDIA ESTIMATED ENERGY NEEDS: ( GERIATRIC, ABW) 0563-9381 KCALS (25-30 KCALS/ KG) 57-69 G PRO (1.0-1.2 G/KG) 3933-5919 ML (25-30 ML/KG) PT PO INTAKE: 75-100% MEALS PER MEAL/NUTRITION ACTIVITY RECORD. DIETARY IS CURRENTLY PROVIDING AN ESTIMATED 2548 KCALS AND 101 GM PRO. PER PT PO INTAKE, THIS IS PROVIDING AN ESTIMATED 2242 KCALS AND 89 GM PRO, TO MEET 100+% KCAL AND 100+% PRO NEEDS. Current Diet Order/ Nutrition Support PUREED, KLAUDIA Pertinent Medications MAALOX (PRN), ALBUTEROL (PRN), VIT C, LIPITOR, COLACE, FISH OIL, SYNTHROID, MOM (PRN), THEREGRAN Pertinent Labs 09/23: AST 12, TRP <0.01 Nutritional Hx/Data Height 5 ft 3 in Height (Calculated Centimeters) 160.0 Current Weight (lbs) 160 lb Weight (Calculated Kilograms) 72.6 Weight (Calculated Grams) 27237.8 [place] Body Weight 115 % [place] Body Weight 139 Body Mass Index (BMI) 28.3 Weight Status Overweight GI Symptoms GI Symptoms None Last BM NOT NOTED Skin Integrity/Comment: WNL, INTACT Current %PO Good (75-100%) Estimated Nutritional Goals BEE in Kcals: Adj wt of IBW Calories/Kcals/Kg 25-30 Kcals Calculated 0591-0804 Protein: Adj wt of IBW Protein g/k.0-1.2 Protein Calculated 57-69 Fluid: ml 4668-8712 ML (25-30 ML/KG) Nutritional Problem No current Nutrition Prob Problem NO NUTRITION DIAGNOSIS AT THIS TIME. Etiology N/A Signs/Symptoms: N/A Malnutrition Related to Morbid Obesity Malnutrition related to morbid obesity No Intervention/Recommendation Comments CONTINUE WITH PUREED, KLAUDIA DIET ORDERED. Expected Outcomes/Goals Expected Outcomes/Goals 1. PO INTAKE TO MEET > 75% OF NUTRITIONAL NEEDS. 2. MONITOR PO INTAKE, WT, NUTRITION RELATED LABS AND SKIN INTEGRITY. 3. F/U LOW RISK IN 7 DAYS, 10/03
--- NOTE | 2018-10-06 02:03 | Discharge Summary ---
DATE OF DISCHARGE: 10/05/2018 PATIENT'S AGE: 63. SEX: Female. PHYSICIAN: Sandy Trujillo MD, MPH FINAL DIAGNOSIS/PRIMARY DIAGNOSIS: Unspecified psychosis. SECONDARY DIAGNOSIS: Dementia, [id number], with psychotic features and behavior disturbances. REASON FOR HOSPITALIZATION: The patient was admitted to the hospital because of increased irritability and agitation and because of difficulty following directions in [facility] where she lives. HOSPITAL COURSE: The patient continued to be agitated and in irritable mood. The patient also was resisting care and she was trying to take off her clothes. The patient needs to be monitored closely by the staff. The patient at the same time continued to take Depakote and the dose adjusted to 500 mg twice a day and also Zyprexa 10 mg twice a day. Also, because of her difficulty sleeping at night, the patient continued to take trazodone 100 mg at bedtime. Gradually, the patient's affect was brighter. The patient was calmer and it was easier to follow directions. The patient was not as agitated and the patient was compliant with taking her medications and she was discharged back to the [facility]. PHYSICAL EXAMINATION: The patient was basically within normal and the patient had no major medical problems while in the hospital. AFTER DISCHARGE PLANS: The patient discharged from the hospital with plans for outpatient treatment and followup. EXPECTED OUTCOME AFTER DISCHARGE: Fair if the patient continues to take her psychotropic medications and follow up with discharge plans. [facility]# [id number]
== END 2018-10-05 16:45 | DRG 885 ==
LOC: ER 17:48 → GERO 19:46
PROVIDERS: ADMIT Psychiatry & Neurology Psychiatry; ATTEND Psychiatry & Neurology Psychiatry
DX: F29 Unspecified psychosis not due to a substance or known physiological condition (principal); F03.91 Unspecified dementia, unspecified severity, with behavioral disturbance; E78.5 Hyperlipidemia, unspecified; M19.90 Unspecified osteoarthritis, unspecified site; I10 Essential (primary) hypertension; J44.9 Chronic obstructive pulmonary disease, unspecified; F31.9 Bipolar disorder, unspecified; E03.9 Hypothyroidism, unspecified; Z88.0 Allergy status to penicillin; Z88.2 Allergy status to sulfonamides
CPT/HCPCS: 36415-UA; 71045-TC; 80053-TC; 80061-TC; 81001-TC; 83036-90; 84443-TC; 84484-TC; 85007-TC; 85025-TC; 85610-TC; 85730-TC; 86592-TC; 90899; 93005; 94760; G0410; J0696; J1200; J1630; J2060; J7051; Z7610